=== PATIENT | female | born 1995 | race African-American/Black ===

== ENCOUNTER 2018-07-27 10:36 | Emergency (ER) | payer OTHER, MEDICAID, SELFPAY ==
[2018-07-27] VITALS (8 sets, daily range): BP systolic 112–125; BP diastolic 63–75; PULSE 100–117; RESP 13–18; TEMP 36.8–39.2; O2SAT 98–100
[2018-07-27 11:33] LABS: Bacteria Urine Many (>30); Culture Indicated Urine Specimen Cultured; RBC Urine 0-1/HPF (0-5/HPF); Squamous Epithelial Cell Urine 1-5 /HPF; WBC Urine >100/HPF (0-5/HPF)
[2018-07-27] MEDS: KETOROLAC 60 MG/2 ML VIAL 30 MG IV (11:53)
[2018-07-27] MEDS: SODIUM CHLORIDE 0.9% 1,000 ML 1000 ML IV (11:54)
[2018-07-27 12:00] LABS: Add Manual Diff / Slide Review NO; Basophils Percent Auto 0.3 % (0-2); Eosinophils Percent Auto 0.3 % (2-4); Hematocrit 33.4 % (36-46); Mean Corpuscular Hemoglobin 29.1 PG (26-34); Mean Corpuscular Volume 88.3 fL (80-100); Neutrophils Absolute Auto 11300 /uL (3000-5900); Neutrophils Percent Auto 76.4 % (50-75); Platelet Count 362 X10^3/uL (150-400); Red Blood Cell Count 3.78 X10^6/uL (4.0-5.2); Red Cell Distribution Width 14.1 % (11.6-14.8); White Blood Cell Count 14.8 X10^3/uL (4.5-11.0)
[2018-07-27 12:07] LABS: INR 1.5 (0.9-1.3); Prothrombin Time 16.1 SECONDS (10.1-12.7)
[2018-07-27 12:10] LABS: Lactate (Lactic Acid) 1.7 mmol/L (0.7-2.1); PTT Partial Thromboplastin Tim 32 SECONDS (26.4-36.2)
--- NOTE | 2018-07-27 12:10 | ED.FEMALEGU ---
HPI - Female Genitourinary <JOSR Stone - Last Filed: 07/27/18 21:52> General Chief complaint: Urogenital-Female Stated complaint: Back pain Time Seen by Provider: 07/27/18 12:10 Source: patient Mode of arrival: ambulatory Limitations: no limitations History of Present Illness HPI Narrative: 23-year-old healthy female that is a nonsmoker here for complaint of having right flank pain and right lower abdominal pain for the last 4 days. She states she has increased urinary frequency and no dysuria. Positive fever. No nausea or vomiting. She states she is tolerating food and fluids well. She denies any vaginal discharge or bleeding. She denies any trauma to the area. She denies any stressors or relievers of the discomfort. No other concerns or complaints Related Data Previous Rx's Medication Instructions Recorded ciprofloxacin HCl 500 mg PO BID #14 tab 07/27/18 Allergies Allergy/AdvReac Type Severity Reaction Status Date / Time No Known Drug Allergies Allergy Verified 07/27/18 12:29 Review of Systems <JOSR Stone - Last Filed: 07/27/18 21:52> Constitutional Denies chills, Reports fever(s), Denies lethargy and Denies weakness Eyes Denies change in vision, Denies eye discharge, Denies irritation and Denies loss of vision ENT Ears, Nose, Mouth, and Throat: Denies change in voice, Denies neck pain and Denies sore throat Cardiovascular Denies chest pain, Denies irregular heart rhythm, Denies lightheadedness, Denies palpitations, Denies dyspnea, Denies dyspnea on exertion and Denies orthopnea Respiratory Denies cough, Denies dyspnea, Denies dyspnea on exertion and Denies wheezing Gastrointestinal Gastrointestinal: Reports abdominal pain Genitourinary Reports flank pain and Reports urinary urgency Musculoskeletal Denies neck pain Integumentary/Breasts Denies pruritus, Denies erythema, Denies rash and Denies wounds Neurologic Denies confusion, Denies loss of vision and Denies weakness Psychiatric Denies anxiety, Denies confusion, Denies depression, Denies homicidal ideation and Denies suicidal ideation Endocrine Denies palpitations Hematologic/Lymphatic Denies easy bruising Allergic/Immunologic Denies wheezing Exam <JOSR Stone - Last Filed: 07/27/18 21:52> Initial Vital Signs Initial Vital Signs: Vital Signs Temperature 102.6 F H 07/27/18 10:40 Pulse Rate 117 H 07/27/18 10:40 Respiratory Rate 13 07/27/18 10:40 Blood Pressure 125/75 07/27/18 10:40 Pulse Oximetry 100 07/27/18 10:40 Const General: cooperative and well developed Nutritional Appearance: well nourished Orientation: alert, awake, oriented x3 and not confused [facility] Mouth: oral mucosae normal and oropharynx normal Eyes General: appearance normal, both eyes and all related structures Eyelids: eyelids normal Conjunctivae: conjunctivae normal Sclera: sclerae normal Pupils: PERRL EOM: EOM intact bilaterally Resp Effort & Inspection: normal respiratory effort, able to speak in complete sentences, no respiratory distress and no use of accessory muscles Auscultation: clear to auscultation bilaterally, no rales, no rhonchi and no wheezes Cardio Rate: regular rate Rhythm: regular rhythm Heart Sounds: no click, no gallops, no murmurs and no rubs Pulses: normal peripheral pulses GI Inspection: non-distended Palpation: soft, no hepatosplenomegaly, No guarding, No pulsatile mass and tender ( right lower quadrant tenderness) Auscultation: normal bowel sounds General: No CVA tenderness Neuro General: alert, oriented x3, gait normal and no focal motor deficits Speech: speech normal Extrem General: full ROM, no clubbing, cyanosis or edema, no pedal edema and no calf tenderness <Maxine Church MD - Last Filed: 07/28/18 08:02> Initial Vital Signs Initial Vital Signs: Vital Signs Temperature 102.6 F H 07/27/18 10:40 Pulse Rate 117 H 07/27/18 10:40 Respiratory Rate 13 07/27/18 10:40 Blood Pressure 125/75 07/27/18 10:40 Pulse Oximetry 100 07/27/18 10:40 Course <JOSR Stone - Last Filed: 07/27/18 21:52> Orders Ordered: Discontinued Medications Acetaminophen (Tylenol) 975 mg PO NOW ONE Stop: 07/27/18 12:37 Last Admin: 07/27/18 12:38 Dose: 975 mg Sodium Chloride (Normal Saline 0.9%) 1,000 mls @ 1,000 mls/hr IV BOLUS ONE Stop: 07/27/18 12:38 Last Infusion: 07/27/18 13:51 Dose: 0 mls/hr Admin: 07/27/18 11:54 Dose: 1,000 mls/hr Ceftriaxone Sodium/Dextrose (Rocephin) 1 gm in 50 mls @ 100 mls/hr IV NOW ONE Stop: 07/27/18 12:48 Last Infusion: 07/27/18 13:51 Dose: 0 mls/hr Admin: 07/27/18 12:38 Dose: 100 mls/hr Ketorolac Tromethamine (Toradol) 30 mg IV NOW ONE Stop: 07/27/18 11:40 Last Admin: 07/27/18 11:53 Dose: 30 mg Vital Signs - 8 hr 07/27/18 14:12 07/27/18 14:26 07/27/18 14:29 Temperature 98.3 F 98.3 F Pulse Rate 103 H Respiratory Rate 16 Blood Pressure [Right Arm] 112/63 Pulse Oximetry 99 <Maxine Church MD - Last Filed: 07/28/18 08:02> Orders Ordered: Discontinued Medications Acetaminophen (Tylenol) 975 mg PO NOW ONE Stop: 07/27/18 12:37 Last Admin: 07/27/18 12:38 Dose: 975 mg Sodium Chloride (Normal Saline 0.9%) 1,000 mls @ 1,000 mls/hr IV BOLUS ONE Stop: 07/27/18 12:38 Last Infusion: 07/27/18 13:51 Dose: 0 mls/hr Admin: 07/27/18 11:54 Dose: 1,000 mls/hr Ceftriaxone Sodium/Dextrose (Rocephin) 1 gm in 50 mls @ 100 mls/hr IV NOW ONE Stop: 07/27/18 12:48 Last Infusion: 07/27/18 13:51 Dose: 0 mls/hr Admin: 07/27/18 12:38 Dose: 100 mls/hr Ketorolac Tromethamine (Toradol) 30 mg IV NOW ONE Stop: 07/27/18 11:40 Last Admin: 07/27/18 11:53 Dose: 30 mg Vital Signs - 8 hr 07/27/18 14:12 07/27/18 14:26 07/27/18 14:29 Temperature 98.3 F 98.3 F Pulse Rate 103 H Respiratory Rate 16 Blood Pressure [Right Arm] 112/63 Pulse Oximetry 99 MDM - Female Genitourinary <JOSR Stone - Last Filed: 07/27/18 21:52> Lab Data Result diagrams: 07/27/18 11:50 07/27/18 11:50 Lab Results 07/27/18 07/27/18 07/27/18 Range/Units 11:10 11:50 11:50 WBC 14.8 H (4.5-11.0) X10^3/uL RBC 3.78 L (4.0-5.2) X10^6/uL Hgb 11.0 L (12.0-16.0) g/dL Hct 33.4 L (36-46) % MCV 88.3 (80-100) fL MCH 29.1 (26-34) PG MCHC 33.0 (30-36) % RDW 14.1 (11.6-14.8) % Plt Count 362 (150-400) X10^3/uL Neut % (Auto) 76.4 H (50-75) % Lymph % (Auto) 7.0 L (25-40) % [place] % (Auto) 16.0 H (3-14) % Eos % (Auto) 0.3 L (2-4) % Baso % (Auto) 0.3 (0-2) % Neut # (Auto) 22104 H (1009-9974) /uL PT 16.1 H (10.1-12.7) SECONDS INR 1.5 H (0.9-1.3) APTT 32 (26.4-36.2) SECONDS Sodium (137-145) mmol/L Potassium (3.4-5.1) mmol/L Chloride (98-107) mmol/L Carbon Dioxide (22-32) mmol/L BUN (7-17) mg/dL Creatinine (0.52-1.04) mg/dL Estimated GFR (>60) mL/min BUN/Creatinine Ratio (6-22) Glucose (70-100) mg/dL Lactate (0.7-2.1) mmol/L Calcium (8.4-10.2) mg/dL Total Bilirubin (0.2-1.3) mg/dL AST (14-36) IU/L ALT (9-52) IU/L Alkaline Phosphatase (38-126) U/L Total Protein (6.3-8.2) g/dL Albumin (3.5-5.0) g/dL Globulin (1.7-4.1) g/dL Albumin/Globulin Ratio (1.0-2.8) Lipase (23-300) U/L Procalcitonin (<0.5) ng/mL Urine RBC 0-1/hpf (0-5/HPF) Urine WBC >100/hpf H (0-5/HPF) Ur Squamous Epith Cells 1-5 /hpf Urine Bacteria Many (>30) H (None) Ur Culture Indicated? Specimen cultured Micro UA Comment Not Reportable 07/27/18 07/27/18 07/27/18 Range/Units 11:50 11:50 11:50 WBC (4.5-11.0) X10^3/uL RBC (4.0-5.2) X10^6/uL Hgb (12.0-16.0) g/dL Hct (36-46) % MCV (80-100) fL MCH (26-34) PG MCHC (30-36) % RDW (11.6-14.8) % Plt Count (150-400) X10^3/uL Neut % (Auto) (50-75) % Lymph % (Auto) (25-40) % [place] % (Auto) (3-14) % Eos % (Auto) (2-4) % Baso % (Auto) (0-2) % Neut # (Auto) (5543-7611) /uL PT (10.1-12.7) SECONDS INR (0.9-1.3) APTT (26.4-36.2) SECONDS Sodium 140 (137-145) mmol/L Potassium 3.4 (3.4-5.1) mmol/L Chloride 97 L (98-107) mmol/L Carbon Dioxide 30 (22-32) mmol/L BUN 7 (7-17) mg/dL Creatinine 0.60 (0.52-1.04) mg/dL Estimated GFR > 60.0 (>60) mL/min BUN/Creatinine Ratio 11.7 (6-22) Glucose 105 H (70-100) mg/dL Lactate 1.7 (0.7-2.1) mmol/L Calcium 8.7 (8.4-10.2) mg/dL Total Bilirubin 0.4 (0.2-1.3) mg/dL AST 28 (14-36) IU/L ALT 23 (9-52) IU/L Alkaline Phosphatase 86 (38-126) U/L Total Protein 7.1 (6.3-8.2) g/dL Albumin 3.7 (3.5-5.0) g/dL Globulin 3.4 (1.7-4.1) g/dL Albumin/Globulin Ratio 1.1 (1.0-2.8) Lipase 14 L (23-300) U/L Procalcitonin 0.22 (<0.5) ng/mL Urine RBC (0-5/HPF) Urine WBC (0-5/HPF) Ur Squamous Epith Cells Urine Bacteria (None) Ur Culture Indicated? Micro UA Comment Point of Care Testing Test Results Negative Urine Dip Bedside Urine Glucose Negative Bedside Urine Bilirubin - Negative Bedside Urine Ketone - Negative Urine Specific [place] 1.015 Bedside Urine Occult Blood +/- Bedside Urine pH 6.0 Bedside Urine Protein + 30 Bedside Urine Urobilinogen - Negative Bedside Urine Nitrite + Positive Bedside Urine Leukocytes +++ [address] scan - abdomen: Radiologist's impression: CT Scan Report Signed Patient: Rowena Gracia [facility]#: [id number] : 1995Acct:[id number] Age/Sex: 23 / FDate of Service: 07/27/18 Loc: ED Accession Number: [id number] Procedure: CT abdomen pelvis w con Ordering Provider: Elvin Moses PROCEDURE: CT ABDOMEN PELVIS W CON INDICATIONS: Right flank pain right lower quadrant pain TECHNIQUE: After the administration of intravenous contrast, 5 mm thick sections acquired from the diaphragm to the symphysis. 5 mm coronal and sagittal reformats were acquired. For radiation dose reduction, the following was used: automated exposure control, adjustment of mA and/or kV according to patient size. COMPARISON: None. FINDINGS: Image quality: Excellent. ABDOMEN: Lung bases: Lung bases are clear. Heart size is normal. Solid organs: Liver is normal in size and enhancement. Gallbladder is unremarkable. Biliary system is non dilated. Pancreas enhances normally. Spleen is normal in size and enhancement. No adrenal nodules. The left kidney demonstrates normal size and enhancement. The right kidney is normal size and demonstrates multiple striated nephrograms. There is moderate right perinephric fat stranding. No hydronephrosis. The right ureter is mildly dilated and hyperemic throughout its course. No ureteral calculi. Peritoneum and bowel: Bowel loops demonstrate normal wall thickness and caliber. The appendix is thin walled and gas filled. No free fluid or air. Nodes and vessels: No retroperitoneal or mesenteric adenopathy by size criteria. Aorta and inferior vena cava are normal in size. Miscellaneous: No ventral hernias. PELVIS: Genitourinary: Bladder wall thickness is normal. The uterus is grossly normal. Miscellaneous: No inguinal hernias or adenopathy. Bones: No suspicious bony lesions. No vertebral body compression fractures. IMPRESSION: 1. Findings suggestive of acute right pyelonephritis. Please correlate with urinalysis. 2. No hydronephrosis, hydroureter, or ureterolithiasis. 3. Normal appendix. These findings were discussed with JOSR Stone at 1:12 PM on 07/27/18. Dictated by: Allyson Armenta M.D. on 07/27/2018 at 13:06 Approved by: Allyson Armenta M.D. on 07/27/2018 at 13:13 [facility] Narrative Medical decision making narrative: CBC shows elevated white count. Chem panel was obtained was unremarkable. Lipase was unremarkable. CT scan of the abdomen was obtained and shows findings consistent with right pyelonephritis. Urinalysis indicates urinary tract infection. She was given Rocephin in the emergency room. Patient desires to go home at this timeframe as she states she is feeling better. [id number] Tylenol as needed for fever. She is prescribed Cipro. Follow up in the next 48 hr for re-evaluation. For any worsening symptoms return to the emergency room. <Maxnie Church MD - Last Filed: 07/28/18 08:02> Lab Data Lab Results 07/27/18 07/27/18 07/27/18 Range/Units 11:10 11:50 11:50 WBC 14.8 H (4.5-11.0) X10^3/uL RBC 3.78 L (4.0-5.2) X10^6/uL Hgb 11.0 L (12.0-16.0) g/dL Hct 33.4 L (36-46) % MCV 88.3 (80-100) fL MCH 29.1 (26-34) PG MCHC 33.0 (30-36) % RDW 14.1 (11.6-14.8) % Plt Count 362 (150-400) X10^3/uL Neut % (Auto) 76.4 H (50-75) % Lymph % (Auto) 7.0 L (25-40) % [place] % (Auto) 16.0 H (3-14) % Eos % (Auto) 0.3 L (2-4) % Baso % (Auto) 0.3 (0-2) % Neut # (Auto) 33221 H (1157-6991) /uL PT 16.1 H (10.1-12.7) SECONDS INR 1.5 H (0.9-1.3) APTT 32 (26.4-36.2) SECONDS Sodium (137-145) mmol/L Potassium (3.4-5.1) mmol/L Chloride (98-107) mmol/L Carbon Dioxide (22-32) mmol/L BUN (7-17) mg/dL Creatinine (0.52-1.04) mg/dL Estimated GFR (>60) mL/min BUN/Creatinine Ratio (6-22) Glucose (70-100) mg/dL Lactate (0.7-2.1) mmol/L Calcium (8.4-10.2) mg/dL Total Bilirubin (0.2-1.3) mg/dL AST (14-36) IU/L ALT (9-52) IU/L Alkaline Phosphatase (38-126) U/L Total Protein (6.3-8.2) g/dL Albumin (3.5-5.0) g/dL Globulin (1.7-4.1) g/dL Albumin/Globulin Ratio (1.0-2.8) Lipase (23-300) U/L Procalcitonin (<0.5) ng/mL Urine RBC 0-1/hpf (0-5/HPF) Urine WBC >100/hpf H (0-5/HPF) Ur Squamous Epith Cells 1-5 /hpf Urine Bacteria Many (>30) H (None) Ur Culture Indicated? Specimen cultured Micro UA Comment Not Reportable 07/27/18 07/27/18 07/27/18 Range/Units 11:50 11:50 11:50 WBC (4.5-11.0) X10^3/uL RBC (4.0-5.2) X10^6/uL Hgb (12.0-16.0) g/dL Hct (36-46) % MCV (80-100) fL MCH (26-34) PG MCHC (30-36) % RDW (11.6-14.8) % Plt Count (150-400) X10^3/uL Neut % (Auto) (50-75) % Lymph % (Auto) (25-40) % [place] % (Auto) (3-14) % Eos % (Auto) (2-4) % Baso % (Auto) (0-2) % Neut # (Auto) (3194-4550) /uL PT (10.1-12.7) SECONDS INR (0.9-1.3) APTT (26.4-36.2) SECONDS Sodium 140 (137-145) mmol/L Potassium 3.4 (3.4-5.1) mmol/L Chloride 97 L (98-107) mmol/L Carbon Dioxide 30 (22-32) mmol/L BUN 7 (7-17) mg/dL Creatinine 0.60 (0.52-1.04) mg/dL Estimated GFR > 60.0 (>60) mL/min BUN/Creatinine Ratio 11.7 (6-22) Glucose 105 H (70-100) mg/dL Lactate 1.7 (0.7-2.1) mmol/L Calcium 8.7 (8.4-10.2) mg/dL Total Bilirubin 0.4 (0.2-1.3) mg/dL AST 28 (14-36) IU/L ALT 23 (9-52) IU/L Alkaline Phosphatase 86 (38-126) U/L Total Protein 7.1 (6.3-8.2) g/dL Albumin 3.7 (3.5-5.0) g/dL Globulin 3.4 (1.7-4.1) g/dL Albumin/Globulin Ratio 1.1 (1.0-2.8) Lipase 14 L (23-300) U/L Procalcitonin 0.22 (<0.5) ng/mL Urine RBC (0-5/HPF) Urine WBC (0-5/HPF) Ur Squamous Epith Cells Urine Bacteria (None) Ur Culture Indicated? Micro UA Comment Point of Care Testing Test Results Negative Urine Dip Bedside Urine Glucose Negative Bedside Urine Bilirubin - Negative Bedside Urine Ketone - Negative Urine Specific [place] 1.015 Bedside Urine Occult Blood +/- Bedside Urine pH 6.0 Bedside Urine Protein + 30 Bedside Urine Urobilinogen - Negative Bedside Urine Nitrite + Positive Bedside Urine Leukocytes +++ 500 Esterase Discharge Plan Departure Patient Disposition: Home Clinical Impression: Pyelonephritis Discharge Date/Time: 07/27/18 14:30 Interventions: ED Discharge Assessment Last Done: 07/27/18 14:29 Instructions: DI for Kidney Infection Activity Restrictions/Additional Instructions: laboratory results and imaging shows findings consistent with a kidney infection. You are placed on oral antibiotic called ciprofloxacin take as directed. follow-up with primary care in the next couple days for re-evaluation. Plenty of fluids. Use [id number] Tylenol as needed for discomfort and fever. For any worsening symptoms return to the emergency room. Prescriptions: New ciprofloxacin HCl 500 mg tablet 500 mg PO BID Qty: 14 RF: 0 Referrals: [facility] [Provider Group]
[2018-07-27 12:18] LABS: Alanine Aminotransferase 23 IU/L (9-52); Albumin 3.7 g/dL (3.5-5.0); Albumin Globulin Ratio 1.1 (1.0-2.8); Alkaline Phosphatase 86 U/L (38-126); Aspartate Aminotransferase 28 IU/L (14-36); BUN Creatinine Ratio 11.7 (6-22); Bilirubin Total 0.4 mg/dL (0.2-1.3); Blood Urea Nitrogen 7 mg/dL (7-17); Calcium 8.7 mg/dL (8.4-10.2); Carbon Dioxide 30 mmol/L (22-32); Chloride 97 mmol/L (98-107); Estimated Glomerular Filt Rate > 60.0 mL/min (>60); Globulin 3.4 g/dL (1.7-4.1); Glucose 105 mg/dL (70-100); HEMOLYSIS 39 (0-50); Lipase 14 U/L (23-300); Potassium 3.4 mmol/L (3.4-5.1); Sodium 140 mmol/L (137-145); Total Protein 7.1 g/dL (6.3-8.2)
--- NOTE | 2018-07-27 12:23 | ED_ITS ---
HPI - Female Genitourinary <JOSR Stone - Last Filed: 07/27/18 21:52> General Chief complaint: Urogenital-Female Stated complaint: Back pain Time Seen by Provider: 07/27/18 12:10 Source: patient Mode of arrival: ambulatory Limitations: no limitations History of Present Illness HPI Narrative: 23-year-old healthy female that is a nonsmoker here for complaint of having right flank pain and right lower abdominal pain for the last 4 days. She states she has increased urinary frequency and no dysuria. Positive fever. No nausea or vomiting. She states she is tolerating food and fluids well. She denies any vaginal discharge or bleeding. She denies any trauma to the area. She denies any stressors or relievers of the discomfort. No other concerns or complaints Related Data Previous Rx's Medication Instructions Recorded ciprofloxacin HCl 500 mg PO BID #14 tab 07/27/18 Allergies Allergy/AdvReac Type Severity Reaction Status Date / Time No Known Drug Allergies Allergy Verified 07/27/18 12:29 Review of Systems <JOSR Stone - Last Filed: 07/27/18 21:52> Constitutional Denies chills, Reports fever(s), Denies lethargy and Denies weakness Eyes Denies change in vision, Denies eye discharge, Denies irritation and Denies loss of vision ENT Ears, Nose, Mouth, and Throat: Denies change in voice, Denies neck pain and Denies sore throat Cardiovascular Denies chest pain, Denies irregular heart rhythm, Denies lightheadedness, Denies palpitations, Denies dyspnea, Denies dyspnea on exertion and Denies orthopnea Respiratory Denies cough, Denies dyspnea, Denies dyspnea on exertion and Denies wheezing Gastrointestinal Gastrointestinal: Reports abdominal pain Genitourinary Reports flank pain and Reports urinary urgency Musculoskeletal Denies neck pain Integumentary/Breasts Denies pruritus, Denies erythema, Denies rash and Denies wounds Neurologic Denies confusion, Denies loss of vision and Denies weakness Psychiatric Denies anxiety, Denies confusion, Denies depression, Denies homicidal ideation and Denies suicidal ideation Endocrine Denies palpitations Hematologic/Lymphatic Denies easy bruising Allergic/Immunologic Denies wheezing Exam <JOSR Stone - Last Filed: 07/27/18 21:52> Initial Vital Signs Initial Vital Signs: Vital Signs Temperature 102.6 F H 07/27/18 10:40 Pulse Rate 117 H 07/27/18 10:40 Respiratory Rate 13 07/27/18 10:40 Blood Pressure 125/75 07/27/18 10:40 Pulse Oximetry 100 07/27/18 10:40 Const General: cooperative and well developed Nutritional Appearance: well nourished Orientation: alert, awake, oriented x3 and not confused [facility] Mouth: oral mucosae normal and oropharynx normal Eyes General: appearance normal, both eyes and all related structures Eyelids: eyelids normal Conjunctivae: conjunctivae normal Sclera: sclerae normal Pupils: PERRL EOM: EOM intact bilaterally Resp Effort & Inspection: normal respiratory effort, able to speak in complete sentences, no respiratory distress and no use of accessory muscles Auscultation: clear to auscultation bilaterally, no rales, no rhonchi and no wheezes Cardio Rate: regular rate Rhythm: regular rhythm Heart Sounds: no click, no gallops, no murmurs and no rubs Pulses: normal peripheral pulses GI Inspection: non-distended Palpation: soft, no hepatosplenomegaly, No guarding, No pulsatile mass and tender ( right lower quadrant tenderness) Auscultation: normal bowel sounds General: No CVA tenderness Neuro General: alert, oriented x3, gait normal and no focal motor deficits Speech: speech normal Extrem General: full ROM, no clubbing, cyanosis or edema, no pedal edema and no calf tenderness <Maxine Church MD - Last Filed: 07/28/18 08:02> Initial Vital Signs Initial Vital Signs: Vital Signs Temperature 102.6 F H 07/27/18 10:40 Pulse Rate 117 H 07/27/18 10:40 Respiratory Rate 13 07/27/18 10:40 Blood Pressure 125/75 07/27/18 10:40 Pulse Oximetry 100 07/27/18 10:40 Course <JOSR Stone - Last Filed: 07/27/18 21:52> Orders Ordered: Discontinued Medications Acetaminophen (Tylenol) 975 mg PO NOW ONE Stop: 07/27/18 12:37 Last Admin: 07/27/18 12:38 Dose: 975 mg Sodium Chloride (Normal Saline 0.9%) 1,000 mls @ 1,000 mls/hr IV BOLUS ONE Stop: 07/27/18 12:38 Last Infusion: 07/27/18 13:51 Dose: 0 mls/hr Admin: 07/27/18 11:54 Dose: 1,000 mls/hr Ceftriaxone Sodium/Dextrose (Rocephin) 1 gm in 50 mls @ 100 mls/hr IV NOW ONE Stop: 07/27/18 12:48 Last Infusion: 07/27/18 13:51 Dose: 0 mls/hr Admin: 07/27/18 12:38 Dose: 100 mls/hr Ketorolac Tromethamine (Toradol) 30 mg IV NOW ONE Stop: 07/27/18 11:40 Last Admin: 07/27/18 11:53 Dose: 30 mg Vital Signs - 8 hr 07/27/18 14:12 07/27/18 14:26 07/27/18 14:29 Temperature 98.3 F 98.3 F Pulse Rate 103 H Respiratory Rate 16 Blood Pressure [Right Arm] 112/63 Pulse Oximetry 99 <Maxine Church MD - Last Filed: 07/28/18 08:02> Orders Ordered: Discontinued Medications Acetaminophen (Tylenol) 975 mg PO NOW ONE Stop: 07/27/18 12:37 Last Admin: 07/27/18 12:38 Dose: 975 mg Sodium Chloride (Normal Saline 0.9%) 1,000 mls @ 1,000 mls/hr IV BOLUS ONE Stop: 07/27/18 12:38 Last Infusion: 07/27/18 13:51 Dose: 0 mls/hr Admin: 07/27/18 11:54 Dose: 1,000 mls/hr Ceftriaxone Sodium/Dextrose (Rocephin) 1 gm in 50 mls @ 100 mls/hr IV NOW ONE Stop: 07/27/18 12:48 Last Infusion: 07/27/18 13:51 Dose: 0 mls/hr Admin: 07/27/18 12:38 Dose: 100 mls/hr Ketorolac Tromethamine (Toradol) 30 mg IV NOW ONE Stop: 07/27/18 11:40 Last Admin: 07/27/18 11:53 Dose: 30 mg Vital Signs - 8 hr 07/27/18 14:12 07/27/18 14:26 07/27/18 14:29 Temperature 98.3 F 98.3 F Pulse Rate 103 H Respiratory Rate 16 Blood Pressure [Right Arm] 112/63 Pulse Oximetry 99 MDM - Female Genitourinary <JOSR Stone - Last Filed: 07/27/18 21:52> Lab Data Result diagrams: 07/27/18 11:50 07/27/18 11:50 Lab Results 07/27/18 07/27/18 07/27/18 Range/Units 11:10 11:50 11:50 WBC 14.8 H (4.5-11.0) X10^3/uL RBC 3.78 L (4.0-5.2) X10^6/uL Hgb 11.0 L (12.0-16.0) g/dL Hct 33.4 L (36-46) % MCV 88.3 (80-100) fL MCH 29.1 (26-34) PG MCHC 33.0 (30-36) % RDW 14.1 (11.6-14.8) % Plt Count 362 (150-400) X10^3/uL Neut % (Auto) 76.4 H (50-75) % Lymph % (Auto) 7.0 L (25-40) % [place] % (Auto) 16.0 H (3-14) % Eos % (Auto) 0.3 L (2-4) % Baso % (Auto) 0.3 (0-2) % Neut # (Auto) 67534 H (2757-3551) /uL PT 16.1 H (10.1-12.7) SECONDS INR 1.5 H (0.9-1.3) APTT 32 (26.4-36.2) SECONDS Sodium (137-145) mmol/L Potassium (3.4-5.1) mmol/L Chloride (98-107) mmol/L Carbon Dioxide (22-32) mmol/L BUN (7-17) mg/dL Creatinine (0.52-1.04) mg/dL Estimated GFR (>60) mL/min BUN/Creatinine Ratio (6-22) Glucose (70-100) mg/dL Lactate (0.7-2.1) mmol/L Calcium (8.4-10.2) mg/dL Total Bilirubin (0.2-1.3) mg/dL AST (14-36) IU/L ALT (9-52) IU/L Alkaline Phosphatase (38-126) U/L Total Protein (6.3-8.2) g/dL Albumin (3.5-5.0) g/dL Globulin (1.7-4.1) g/dL Albumin/Globulin Ratio (1.0-2.8) Lipase (23-300) U/L Procalcitonin (<0.5) ng/mL Urine RBC 0-1/hpf (0-5/HPF) Urine WBC >100/hpf H (0-5/HPF) Ur Squamous Epith Cells 1-5 /hpf Urine Bacteria Many (>30) H (None) Ur Culture Indicated? Specimen cultured Micro UA Comment Not Reportable 07/27/18 07/27/18 07/27/18 Range/Units 11:50 11:50 11:50 WBC (4.5-11.0) X10^3/uL RBC (4.0-5.2) X10^6/uL Hgb (12.0-16.0) g/dL Hct (36-46) % MCV (80-100) fL MCH (26-34) PG MCHC (30-36) % RDW (11.6-14.8) % Plt Count (150-400) X10^3/uL Neut % (Auto) (50-75) % Lymph % (Auto) (25-40) % [place] % (Auto) (3-14) % Eos % (Auto) (2-4) % Baso % (Auto) (0-2) % Neut # (Auto) (3177-9337) /uL PT (10.1-12.7) SECONDS INR (0.9-1.3) APTT (26.4-36.2) SECONDS Sodium 140 (137-145) mmol/L Potassium 3.4 (3.4-5.1) mmol/L Chloride 97 L (98-107) mmol/L Carbon Dioxide 30 (22-32) mmol/L BUN 7 (7-17) mg/dL Creatinine 0.60 (0.52-1.04) mg/dL Estimated GFR > 60.0 (>60) mL/min BUN/Creatinine Ratio 11.7 (6-22) Glucose 105 H (70-100) mg/dL Lactate 1.7 (0.7-2.1) mmol/L Calcium 8.7 (8.4-10.2) mg/dL Total Bilirubin 0.4 (0.2-1.3) mg/dL AST 28 (14-36) IU/L ALT 23 (9-52) IU/L Alkaline Phosphatase 86 (38-126) U/L Total Protein 7.1 (6.3-8.2) g/dL Albumin 3.7 (3.5-5.0) g/dL Globulin 3.4 (1.7-4.1) g/dL Albumin/Globulin Ratio 1.1 (1.0-2.8) Lipase 14 L (23-300) U/L Procalcitonin 0.22 (<0.5) ng/mL Urine RBC (0-5/HPF) Urine WBC (0-5/HPF) Ur Squamous Epith Cells Urine Bacteria (None) Ur Culture Indicated? Micro UA Comment Point of Care Testing Test Results Negative Urine Dip Bedside Urine Glucose Negative Bedside Urine Bilirubin - Negative Bedside Urine Ketone - Negative Urine Specific [place] 1.015 Bedside Urine Occult Blood +/- Bedside Urine pH 6.0 Bedside Urine Protein + 30 Bedside Urine Urobilinogen - Negative Bedside Urine Nitrite + Positive Bedside Urine Leukocytes +++ [address] scan - abdomen: Radiologist's impression: CT Scan Report Signed Patient: Rowena Garcia [facility]#: [id number] : 1995Acct:[id number] Age/Sex: 23 / FDate of Service: 07/27/18 Loc: ED Accession Number: [id number] Procedure: CT abdomen pelvis w con Ordering Provider: Elvin Moses PROCEDURE: CT ABDOMEN PELVIS W CON INDICATIONS: Right flank pain right lower quadrant pain TECHNIQUE: After the administration of intravenous contrast, 5 mm thick sections acquired from the diaphragm to the symphysis. 5 mm coronal and sagittal reformats were acquired. For radiation dose reduction, the following was used: automated exposure control, adjustment of mA and/or kV according to patient size. COMPARISON: None. FINDINGS: Image quality: Excellent. ABDOMEN: Lung bases: Lung bases are clear. Heart size is normal. Solid organs: Liver is normal in size and enhancement. Gallbladder is unremarkable. Biliary system is non dilated. Pancreas enhances normally. Spleen is normal in size and enhancement. No adrenal nodules. The left kidney demonstrates normal size and enhancement. The right kidney is normal size and demonstrates multiple striated nephrograms. There is moderate right perinephric fat stranding. No hydronephrosis. The right ureter is mildly dilated and hyperemic throughout its course. No ureteral calculi. Peritoneum and bowel: Bowel loops demonstrate normal wall thickness and caliber. The appendix is thin walled and gas filled. No free fluid or air. Nodes and vessels: No retroperitoneal or mesenteric adenopathy by size criteria. Aorta and inferior vena cava are normal in size. Miscellaneous: No ventral hernias. PELVIS: Genitourinary: Bladder wall thickness is normal. The uterus is grossly normal. Miscellaneous: No inguinal hernias or adenopathy. Bones: No suspicious bony lesions. No vertebral body compression fractures. IMPRESSION: 1. Findings suggestive of acute right pyelonephritis. Please correlate with urinalysis. 2. No hydronephrosis, hydroureter, or ureterolithiasis. 3. Normal appendix. These findings were discussed with JOSR Stone at 1:12 PM on 07/27/18. Dictated by: Allyson Armenta M.D. on 07/27/2018 at 13:06 Approved by: Allyson Armenta M.D. on 07/27/2018 at 13:13 [facility] Narrative Medical decision making narrative: CBC shows elevated white count. Chem panel was obtained was unremarkable. Lipase was unremarkable. CT scan of the abdomen was obtained and shows findings consistent with right pyelonephritis. Urinalysis indicates urinary tract infection. She was given Rocephin in the emergency room. Patient desires to go home at this timeframe as she states she is feeling better. [id number] Tylenol as needed for fever. She is prescribed Cipro. Follow up in the next 48 hr for re-evaluation. For any worsening symptoms return to the emergency room. <Maxine Church MD - Last Filed: 07/28/18 08:02> Lab Data Lab Results 07/27/18 07/27/18 07/27/18 Range/Units 11:10 11:50 11:50 WBC 14.8 H (4.5-11.0) X10^3/uL RBC 3.78 L (4.0-5.2) X10^6/uL Hgb 11.0 L (12.0-16.0) g/dL Hct 33.4 L (36-46) % MCV 88.3 (80-100) fL MCH 29.1 (26-34) PG MCHC 33.0 (30-36) % RDW 14.1 (11.6-14.8) % Plt Count 362 (150-400) X10^3/uL Neut % (Auto) 76.4 H (50-75) % Lymph % (Auto) 7.0 L (25-40) % [place] % (Auto) 16.0 H (3-14) % Eos % (Auto) 0.3 L (2-4) % Baso % (Auto) 0.3 (0-2) % Neut # (Auto) 67733 H (5667-7492) /uL PT 16.1 H (10.1-12.7) SECONDS INR 1.5 H (0.9-1.3) APTT 32 (26.4-36.2) SECONDS Sodium (137-145) mmol/L Potassium (3.4-5.1) mmol/L Chloride (98-107) mmol/L Carbon Dioxide (22-32) mmol/L BUN (7-17) mg/dL Creatinine (0.52-1.04) mg/dL Estimated GFR (>60) mL/min BUN/Creatinine Ratio (6-22) Glucose (70-100) mg/dL Lactate (0.7-2.1) mmol/L Calcium (8.4-10.2) mg/dL Total Bilirubin (0.2-1.3) mg/dL AST (14-36) IU/L ALT (9-52) IU/L Alkaline Phosphatase (38-126) U/L Total Protein (6.3-8.2) g/dL Albumin (3.5-5.0) g/dL Globulin (1.7-4.1) g/dL Albumin/Globulin Ratio (1.0-2.8) Lipase (23-300) U/L Procalcitonin (<0.5) ng/mL Urine RBC 0-1/hpf (0-5/HPF) Urine WBC >100/hpf H (0-5/HPF) Ur Squamous Epith Cells 1-5 /hpf Urine Bacteria Many (>30) H (None) Ur Culture Indicated? Specimen cultured Micro UA Comment Not Reportable 07/27/18 07/27/18 07/27/18 Range/Units 11:50 11:50 11:50 WBC (4.5-11.0) X10^3/uL RBC (4.0-5.2) X10^6/uL Hgb (12.0-16.0) g/dL Hct (36-46) % MCV (80-100) fL MCH (26-34) PG MCHC (30-36) % RDW (11.6-14.8) % Plt Count (150-400) X10^3/uL Neut % (Auto) (50-75) % Lymph % (Auto) (25-40) % [place] % (Auto) (3-14) % Eos % (Auto) (2-4) % Baso % (Auto) (0-2) % Neut # (Auto) (8375-5806) /uL PT (10.1-12.7) SECONDS INR (0.9-1.3) APTT (26.4-36.2) SECONDS Sodium 140 (137-145) mmol/L Potassium 3.4 (3.4-5.1) mmol/L Chloride 97 L (98-107) mmol/L Carbon Dioxide 30 (22-32) mmol/L BUN 7 (7-17) mg/dL Creatinine 0.60 (0.52-1.04) mg/dL Estimated GFR > 60.0 (>60) mL/min BUN/Creatinine Ratio 11.7 (6-22) Glucose 105 H (70-100) mg/dL Lactate 1.7 (0.7-2.1) mmol/L Calcium 8.7 (8.4-10.2) mg/dL Total Bilirubin 0.4 (0.2-1.3) mg/dL AST 28 (14-36) IU/L ALT 23 (9-52) IU/L Alkaline Phosphatase 86 (38-126) U/L Total Protein 7.1 (6.3-8.2) g/dL Albumin 3.7 (3.5-5.0) g/dL Globulin 3.4 (1.7-4.1) g/dL Albumin/Globulin Ratio 1.1 (1.0-2.8) Lipase 14 L (23-300) U/L Procalcitonin 0.22 (<0.5) ng/mL Urine RBC (0-5/HPF) Urine WBC (0-5/HPF) Ur Squamous Epith Cells Urine Bacteria (None) Ur Culture Indicated? Micro UA Comment Point of Care Testing Test Results Negative Urine Dip Bedside Urine Glucose Negative Bedside Urine Bilirubin - Negative Bedside Urine Ketone - Negative Urine Specific [place] 1.015 Bedside Urine Occult Blood +/- Bedside Urine pH 6.0 Bedside Urine Protein + 30 Bedside Urine Urobilinogen - Negative Bedside Urine Nitrite + Positive Bedside Urine Leukocytes +++ 500 Esterase Discharge Plan Departure Patient Disposition: Home Clinical Impression: Pyelonephritis Discharge Date/Time: 07/27/18 14:30 Interventions: ED Discharge Assessment Last Done: 07/27/18 14:29 Instructions: DI for Kidney Infection Activity Restrictions/Additional Instructions: laboratory results and imaging shows findings consistent with a kidney infection. You are placed on oral antibiotic called ciprofloxacin take as directed. follow-up with primary care in the next couple days for re- evaluation. Plenty of fluids. Use [id number] Tylenol as needed for discomfort and fever. For any worsening symptoms return to the emergency room. Prescriptions: New ciprofloxacin HCl 500 mg tablet 500 mg PO BID Qty: 14 RF: 0 Referrals: [facility] [Provider Group]
[2018-07-27] MEDS: CEFTRIAXONE 1 GM/50 ML FROZ.PIGGY IV (12:38)
[2018-07-27] MEDS: ACETAMINOPHEN 325 MG TABLET 975 MG PO (12:38)
--- NOTE | 2018-07-27 12:50 | DI.CT.S_ITS ---
PROCEDURE: CT ABDOMEN PELVIS W CON INDICATIONS: Right flank pain right lower quadrant pain TECHNIQUE: After the administration of intravenous contrast, 5 mm thick sections acquired from the diaphragm to the symphysis. 5 mm coronal and sagittal reformats were acquired. For radiation dose reduction, the following was used: automated exposure control, adjustment of mA and/or kV according to patient size. COMPARISON: None. FINDINGS: Image quality: Excellent. ABDOMEN: Lung bases: Lung bases are clear. Heart size is normal. Solid organs: Liver is normal in size and enhancement. Gallbladder is unremarkable. Biliary system is non dilated. Pancreas enhances normally. Spleen is normal in size and enhancement. No adrenal nodules. The left kidney demonstrates normal size and enhancement. The right kidney is normal size and demonstrates multiple striated nephrograms. There is moderate right perinephric fat stranding. No hydronephrosis. The right ureter is mildly dilated and hyperemic throughout its course. No ureteral calculi. Peritoneum and bowel: Bowel loops demonstrate normal wall thickness and caliber. The appendix is thin walled and gas filled. No free fluid or air. Nodes and vessels: No retroperitoneal or mesenteric adenopathy by size criteria. Aorta and inferior vena cava are normal in size. Miscellaneous: No ventral hernias. PELVIS: Genitourinary: Bladder wall thickness is normal. The uterus is grossly normal. Miscellaneous: No inguinal hernias or adenopathy. Bones: No suspicious bony lesions. No vertebral body compression fractures. IMPRESSION: 1. Findings suggestive of acute right pyelonephritis. Please correlate with urinalysis. 2. No hydronephrosis, hydroureter, or ureterolithiasis. 3. Normal appendix. These findings were discussed with JOSR Stone at 1:12 PM on 07/27/18. Dictated by: Allyson Armenta M.D. on 07/27/2018 at 13:06 Approved by: Allyson Armenta M.D. on 07/27/2018 at 13:13
[2018-07-27 12:55] LABS: Procalcitonin 0.22 ng/mL (<0.5)
== END 2018-07-27 14:30 | disposition home or self-care (01) ==
PROVIDERS: Emergency Medicine; Emergency Provider Nurse Practitioner Family
DX: N12 Tubulo-interstitial nephritis, not specified as acute or chronic (principal)
CPT/HCPCS: 36415; 36591; 74177; 80053; 81003; 81015; 81025; 83605; 83690; 84145; 85025; 85610; 85730; 87040; 87077; 87086; 87186; 96361; 96365; 96375; 99283; 99285; J1885; Q9967

== ENCOUNTER 2019-03-24 02:34 | Emergency (ER) | payer OTHER, MEDICAID, SELFPAY ==
[2019-03-24 02:41] VITALS: BP 138/83; PULSE 93; RESP 22; TEMP 37.5; O2SAT 97; BMI 25.8
--- NOTE | 2019-03-24 02:47 | ED.EXTPRO ---
HPI - Extremity Problem General Chief complaint: Extremity Problem,Nontraumatic Stated complaint: LEFT LEG PAIN/CANT MOVE Time Seen by Provider: 03/24/19 02:40 Source: patient Mode of arrival: wheelchair Limitations: no limitations History of Present Illness HPI Narrative: Patient is a 23-year-old female. Admitted to using methamphetamine prior to arrival. She here for evaluation of left hip pain. She stated that it started when she woke up yesterday afternoon. No specific trauma. No urinary symptoms. No abdominal pain. No change bowel. States that it hurts for her to walk. Never had anything like this before. No vaginal bleeding. Has not tried anything for the symptoms prior to arrival Related Data Previous Rx's Medication Instructions Recorded ciprofloxacin HCl 500 mg PO BID #14 tab 07/27/18 Allergies Allergy/AdvReac Type Severity Reaction Status Date / Time No Known Drug Allergies Allergy Verified 07/27/18 12:29 Review of Systems Constitutional Denies fever(s) Gastrointestinal Gastrointestinal: Denies abdominal pain, Denies change in stool character, Denies nausea and Denies vomiting Genitourinary Denies dysuria and Denies vaginal discharge Musculoskeletal Denies back pain, Reports myalgias (Left hip) and Reports arthralgias (Left hip) Integumentary/Breasts Denies rash Neurologic Comments: Tingling down her left leg Hematologic/Lymphatic Denies easy bleeding and Denies easy bruising [facility] Medical History Patient denies medical problems (Acute) Social History lives independently: Yes Social History lives independently: Yes Exam Initial Vital Signs Initial Vital Signs: Vital Signs Temperature 99.5 F 03/24/19 02:41 Pulse Rate 93 H 03/24/19 02:41 Respiratory Rate 22 03/24/19 02:41 Blood Pressure 138/83 03/24/19 02:41 Pulse Oximetry 97 03/24/19 02:41 Const General: cooperative, well groomed and No acute distress Orientation: alert and awake Cardio Pulses: dorsalis pedis present on the left GI Inspection: non-distended Palpation: soft, No firm and No tender Other: Did not perform a bimanual exam however is no adnexal pain on the left or right on external exam Skin Lesions: no lesions Rashes: no rashes Neuro General: alert and awake Other: Patient is fidgeting consistent with the use of meth. Extrem Other: Left knee unremarkable. Left ankle unremarkable. Patient with tenderness with flexion of the left hip. Patient also with tenderness of internal and external rotation left hip. No tenderness to palpation over the greater trochanter. No tenderness to palpation over the left adnexa. She points to the anterior thigh as the location of the pain. Course Orders Ordered: ED Orders 03/24/19 02:53 XR hip w pel if done LT 2V Stat Discontinued Medications Ketorolac Tromethamine (Toradol) 30 mg IM NOW ONE Stop: 03/24/19 03:19 Last Admin: 03/24/19 03:26 Dose: 30 mg Vital Signs - 8 hr 03/24/19 02:41 Temperature 99.5 F Pulse Rate 93 H Respiratory Rate 22 Blood Pressure 138/83 Pulse Oximetry 97 MDM - Extremity (Nontraumatic) Imaging Data X-ray hip: Attestation: I personally reviewed and interpreted this imaging study as follows: My impression: No fractures, no dislocations, no acute pathology MDM Narrative Medical decision making narrative: X-rays are negative for fractures. Patient is neurovascularly intact distal in the left lower extremity. Her symptoms seemed to be located to the left anterior thigh. Considered ovarian pathology however she has no adnexal tenderness. No urinary symptoms. No abdominal tenderness. Considered other etiologies such as femoral hernia/obturator hernia however patient is not tried anything for symptoms prior to arrival. She has no signs of cellulitis. She is afebrile. Considered septic joint however symptoms in the anterior thigh. She has no lower back pain. Informed her because of her methamphetamine use prior to arrival that I would not give her any opioids. She was given Toradol here in the ER. Hold on further workup for now. She is given return precautions. She expressed understanding agreement plan. Discharge Plan Departure Patient Disposition: Home Clinical Impression: Acute pain of left hip Instructions: DI for Hip Pain Activity Restrictions/Additional Instructions: There are no fractures on the x-ray. Because of this you can walk on your left leg. Recommend that you start taking an anti-inflammatory such as Motrin and/or Naprosyn. You can buy these medications [id number]. No driving for the next 24 hours or in the future if you prior taken intoxicating substances. Contact your primary care provider tomorrow for follow-up. If you do not have a primary doctor that contact 360 speak with the health case resource manager here at the hospital to help you establish care with a primary provider. Return to the emergency department for any new symptoms. Prescriptions: No Action ciprofloxacin HCl 500 mg tablet 500 mg PO BID Qty: 14 RF: 0
--- NOTE | 2019-03-24 02:53 | DI.RAD.S_ITS ---
PROCEDURE: XR HIP W PEL IF DONE LT 2V INDICATIONS: Left hip pain TECHNIQUE: AP pelvis with lateral view(s) of the left hip(s). COMPARISON: None. FINDINGS: Bones: No fractures or dislocations. Pelvic ring appears intact. No suspicious bony lesions. Soft tissues: The visualized bowel gas pattern is normal. No suspicious soft tissue calcifications. IMPRESSION: No evidence acute bony abnormality of the pelvis and left hip Dictated by: Vernon Santos M.D. on 03/24/2019 at 9:36 Approved by: Vernon Santos M.D. on 03/24/2019 at 9:36
[2019-03-24] MEDS: KETOROLAC 60 MG/2 ML VIAL 30 MG IM (03:26)
[2019-03-24 03:58] VITALS: BP 139/81; PULSE 88; RESP 18; O2SAT 100
== END 2019-03-24 03:59 | disposition home or self-care (01) ==
PROVIDERS: Emergency Provider Emergency Medicine
DX: M25.552 Pain in left hip (principal)
CPT/HCPCS: 73502; 96372; 99282; 99283; J1885

== ENCOUNTER 2019-11-04 17:12 | Emergency (ER) | payer OTHER, MEDICAID, SELFPAY ==
[2019-11-04 17:16] VITALS: BP 127/85; PULSE 104; RESP 18; TEMP 36.9; O2SAT 100; BMI 28.5
--- NOTE | 2019-11-04 18:11 | PC.NURSE ---
pt states that she believes that she is about 5 months , she has not had any care and presents today for confirmation of , how far along and to get checked out, pt discloses that she uses meth daily
[2019-11-04 18:19] LABS: Add Manual Diff / Slide Review NO; Basophils Absolute Auto 0 /uL (0-100); Basophils Percent Auto 0.3 % (0-2); Eosinophils Absolute Auto 100 /uL (0-450); Eosinophils Percent Auto 0.6 % (2-4); Hematocrit 33.6 % (36-46); Lymphocytes Absolute Auto 2000 /uL (1100-4500); Lymphocytes Percent Auto 19.6 % (25-40); Mean Corpuscular HGB Conc 32.7 % (30-36); Mean Corpuscular Hemoglobin 29.2 PG (26-34); Mean Corpuscular Volume 89.4 fL (80-100); Monocytes Absolute Auto 1200 /uL (0-900); Monocytes Percent Auto 11.4 % (3-14); Neutrophils Absolute Auto 7000 /uL (1500-7000); Neutrophils Percent Auto 68.1 % (50-75); Platelet Count 388 X10^3/uL (150-400); Red Blood Cell Count 3.76 X10^6/uL (4.0-5.2); Red Cell Distribution Width 13.6 % (11.6-14.8); White Blood Cell Count 10.2 X10^3/uL (4.5-11.0)
--- NOTE | 2019-11-04 18:28 | ED.GENADULT ---
HPI - General Adult General Chief complaint: OB/Uterine Contractions Stated complaint: , does not know how long, wants check up Time Seen by Provider: 11/04/19 17:31 Source: patient Mode of arrival: Family Vehicle Limitations: no limitations History of Present Illness HPI narrative: 24-year-old female who states she knows that she is . This is her 2nd . Found out almost 1 month ago that she was had another outside facility. Has not had any care after that. She is taking vitamins. She has no complaints today. No vaginal bleeding. No urinary symptoms. She has been treated for urinary tract infection after her last visit. No cramping. Here because she has no OB appointment set up. She recently arrived in local area. Is living with her mother. Does not have a primary doctor in the area. Is here to ?get the process started ?with finding a OB provider for Related Data Previous Rx's Medication Instructions Recorded ciprofloxacin HCl 500 mg PO BID #14 tab 07/27/18 Allergies Allergy/AdvReac Type Severity Reaction Status Date / Time No Known Drug Allergies Allergy Verified 11/04/19 17:27 Review of Systems Constitutional Constitutional: Denies fever(s) Cardiovascular Cardiovascular: Denies chest pain and Denies dyspnea Respiratory Respiratory: Denies dyspnea Gastrointestinal Gastrointestinal: Denies abdominal pain Genitourinary Genitourinary: Denies hematuria, Denies dysuria and Denies vaginal discharge Musculoskeletal Musculoskeletal: Denies myalgias and Denies arthralgias Integumentary/Breasts Skin/Breast: Denies lesions and Denies rash Neurologic Neurologic: Denies behavioral changes Psychiatric Psychiatric: Denies behavioral changes Hematologic/Lymphatic Hematologic/Lymphatic: Denies easy bleeding and Denies easy bruising Allergic/Immunologic Allergic/Immunologic: Denies urticaria Patient History Medical History Patient denies medical problems (Acute) Social History lives independently: Yes Smoking Status: Current every day smoker Smoking Status: Current every day smoker tobacco type: cigarettes alcohol intake frequency: 0-2 drinks per day Substance Use Type: methamphetamine Exam Initial Vital Signs Initial Vital Signs: Vital Signs Temperature 98.5 F 11/04/19 17:16 Pulse Rate 104 H 11/04/19 17:16 Respiratory Rate 18 11/04/19 17:16 Blood Pressure 127/85 11/04/19 17:16 Pulse Oximetry 100 11/04/19 17:16 Const General: cooperative and comfortable Limitations: mental status not altered HENVA Head: normal to inspection and normocephalic Resp Effort & Inspection: normal respiratory effort Cardio Rate: tachycardic GI Palpation: soft Skin Lesions: no lesions Rashes: no rashes Neuro General: alert Cognition: normal cognition Speech: speech normal Extrem General: normal to inspection Psych Appearance: grossly normal and well kempt Course Orders Ordered: ED Orders 11/04/19 18:00 Urine Culture Stat Urine Drug Screen, Rapid Stat Urine Microscopic Stat 11/04/19 18:11 ABO RH Type Stat Basic Metabolic Panel Stat Complete Blood Count AUTO DIFF Stat HCG Quantitative Stat Vital Signs Vital signs: Vital Signs - 8 hr 11/04/19 17:16 11/04/19 18:56 11/04/19 19:19 Temperature 98.5 F Pulse Rate 104 H 87 98 H Respiratory Rate 18 18 16 Blood Pressure 127/85 Blood Pressure [Right Arm] 123/79 Pulse Oximetry 100 100 96 Medical Decision Making Lab Data Result diagrams: 11/04/19 18:11 11/04/19 18:11 Labs: Lab Results 11/04/19 11/04/19 11/04/19 Range/Units 18:00 18:00 18:11 WBC 10.2 (4.5-11.0) X10^3/uL RBC 3.76 L (4.0-5.2) X10^6/uL Hgb 11.0 L (12.0-16.0) g/dL Hct 33.6 L (36-46) % MCV 89.4 (80-100) fL MCH 29.2 (26-34) PG MCHC 32.7 (30-36) % RDW 13.6 (11.6-14.8) % Plt Count 388 (150-400) X10^3/uL Neut % (Auto) 68.1 (50-75) % Lymph % (Auto) 19.6 L (25-40) % [place] % (Auto) 11.4 (3-14) % Eos % (Auto) 0.6 L (2-4) % Baso % (Auto) 0.3 (0-2) % Neut # (Auto) 7000 (0708-7368) /uL Lymph # (Auto) 2000 (6648-8920) /uL [place] # (Auto) 1200 H (0-900) /uL Eos # (Auto) 100 (0-450) /uL Baso # (Auto) 0 (0-100) /uL Sodium (137-145) mmol/L Potassium (3.4-5.1) mmol/L Chloride (98-107) mmol/L Carbon Dioxide (22-32) mmol/L BUN (7-17) mg/dL Creatinine (0.52-1.04) mg/dL Estimated GFR (>60) mL/min BUN/Creatinine Ratio (6-22) Glucose (70-100) mg/dL Calcium (8.4-10.2) mg/dL HCG, Quant mIU/mL Urine RBC 0-1/hpf (0-5/HPF) Urine WBC 10-30/hpf H (0-5/HPF) Ur Squamous Epith Cells 1-5 /hpf (0-5/HPF) Ur Transition Epith Cell 0-1/hpf (0-5/HPF) Urine Bacteria Few (2-10) H (None) Ur Culture Indicated? Specimen cultured U Opiates 300ng/mL cut Negative (Negative) Ur Oxycodone Screen Negative (Negative) Urine Methadone Screen Negative (Negative) Ur Barbiturates Screen Negative (Negative) U Tricyclic Antidepress Negative (Negative) Ur Phencyclidine Scrn Negative (Negative) Ur Amphetamines Screen Positive H (Negative) U Methamphetamines Scrn Positive H (Negative) Ur MDMA Scrn (Ecstasy) Positive H (Negative) U Benzodiazepines Scrn Negative (Negative) Urine Cocaine Screen Negative (Negative) U Marijuana (THC) Screen Negative (Negative) Blood Type 11/04/19 11/04/19 Range/Units 18:11 18:11 WBC (4.5-11.0) X10^3/uL RBC (4.0-5.2) X10^6/uL Hgb (12.0-16.0) g/dL Hct (36-46) % MCV (80-100) fL MCH (26-34) PG MCHC (30-36) % RDW (11.6-14.8) % Plt Count (150-400) X10^3/uL Neut % (Auto) (50-75) % Lymph % (Auto) (25-40) % [place] % (Auto) (3-14) % Eos % (Auto) (2-4) % Baso % (Auto) (0-2) % Neut # (Auto) (1941-2326) /uL Lymph # (Auto) (9792-8762) /uL [place] # (Auto) (0-900) /uL Eos # (Auto) (0-450) /uL Baso # (Auto) (0-100) /uL Sodium 137 (137-145) mmol/L Potassium 3.6 (3.4-5.1) mmol/L Chloride 102 (98-107) mmol/L Carbon Dioxide 26 (22-32) mmol/L BUN 10 (7-17) mg/dL Creatinine 0.50 L (0.52-1.04) mg/dL Estimated GFR > 60.0 (>60) mL/min BUN/Creatinine Ratio 20.0 (6-22) Glucose 84 (70-100) mg/dL Calcium 8.9 (8.4-10.2) mg/dL HCG, Quant 63477 mIU/mL Urine RBC (0-5/HPF) Urine WBC (0-5/HPF) Ur Squamous Epith Cells (0-5/HPF) Ur Transition Epith Cell (0-5/HPF) Urine Bacteria (None) Ur Culture Indicated? U Opiates 300ng/mL cut (Negative) Ur Oxycodone Screen (Negative) Urine Methadone Screen (Negative) Ur Barbiturates Screen (Negative) U Tricyclic Antidepress (Negative) Ur Phencyclidine Scrn (Negative) Ur Amphetamines Screen (Negative) U Methamphetamines Scrn (Negative) Ur MDMA Scrn (Ecstasy) (Negative) U Benzodiazepines Scrn (Negative) Urine Cocaine Screen (Negative) U Marijuana (THC) Screen (Negative) Blood Type O Positive Point of Care Testing Test Results Positive Urine Dip Bedside Urine Glucose Negative Bedside Urine Bilirubin - Negative Bedside Urine Ketone - Negative Urine Specific [place] 1.025 Bedside Urine Occult Blood - Negative Bedside Urine pH 6.0 Bedside Urine Protein +/- 15 Bedside Urine Urobilinogen - Negative Bedside Urine Nitrite - Negative Bedside Urine Leukocytes +/- 15 Esterase Point of care testing: Point of Care Testing Test Results Positive Urine Dip Bedside Urine Glucose Negative Bedside Urine Bilirubin - Negative Bedside Urine Ketone - Negative Urine Specific [place] 1.025 Bedside Urine Occult Blood - Negative Bedside Urine pH 6.0 Bedside Urine Protein +/- 15 Bedside Urine Urobilinogen - Negative Bedside Urine Nitrite - Negative Bedside Urine Leukocytes +/- 15 Esterase MDM Narrative Medical decision making narrative: Patient has no specific OB complaints today. She does have bacteria in her urine. A culture was pending. She was informed that we would contact her if we needed to start on antibiotics. She is Rh positive. Social work did evaluate the patient. It does appear that the patient is a active meth user. I did talk with the patient about this. I did inform her that methamphetamines or other drugs or alcohol is extremely harmful to herself and her unborn baby. She expressed understanding with this. Social work did see the patient in the ER as well. She was provided resources with regard to this. Patient was also given phone numbers that she can contact for the local OB group and also the health technology resource teacher to the hospital. There's no need for emergent ultrasound. Patient was given return precautions and follow-up instructions. She does have vitamins which she will continue to take. She expressed understanding and agreement with plan. Discharge Plan Departure Patient Disposition: Home Clinical Impression: Qualifiers: Weeks of gestation: unspecified Qualified Code(s): Z34.90 - Encounter for supervision of normal , unspecified, unspecified trimester Discharge Date/Time: 11/04/19 19:19 Instructions: DI for -- Discomforts and Remedies Activity Restrictions/Additional Instructions: It is important that you continue with your vitamins. I also recommend that you avoid drug or alcohol use. On Thursday you can contact the [facility] at 360 help you establish a OB provider. You can also contact the health technology resource teacher at [phone] here at the hospital to help with this as well. Return to the emergency department for any new or worsening symptoms Prescriptions: No Action ciprofloxacin HCl 500 mg tablet 500 mg PO BID Qty: 14 RF: 0
[2019-11-04 18:30] LABS: Blood Urea Nitrogen 10 mg/dL (7-17); Calcium 8.9 mg/dL (8.4-10.2); Carbon Dioxide 26 mmol/L (22-32); Chloride 102 mmol/L (98-107); Estimated Glomerular Filt Rate > 60.0 mL/min (>60); Glucose 84 mg/dL (70-100); HEMOLYSIS < 15 (0-50); Potassium 3.6 mmol/L (3.4-5.1); Sodium 137 mmol/L (137-145)
[2019-11-04 18:46] LABS: HCG Quantitative /Beta subunit 11035 mIU/mL
[2019-11-04 18:47] LABS: Ur Creatinine Normal (Normal); Ur Specific Gravity Normal (Normal); Urine pH Normal (Normal)
[2019-11-04 18:48] LABS: UR Morphine/Opiate cutoff 300 Negative (Negative); Urine Amphetamines Positive (Negative); Urine Cocaine Negative (Negative); Urine MDMA Positive (Negative); Urine Methamphetamines Positive (Negative); Urine Phencyclidine Negative (Negative); Urine Tetrahydrocannabinol Negative (Negative)
[2019-11-04 18:49] LABS: Urine Barbiturates Negative (Negative); Urine Benzodiazepines Negative (Negative); Urine Methadone Negative (Negative); Urine Oxycodone Negative (Negative); Urine Tricyclic Antidepressant Negative (Negative)
[2019-11-04 18:52] LABS: Bacteria Urine Few (2-10); Culture Indicated Urine Specimen Cultured; RBC Urine 0-1/HPF (0-5/HPF); Squamous Epithelial Cell Urine 1-5 /HPF (0-5/HPF); Transitional Epi Cells Urine 0-1/HPF (0-5/HPF); WBC Urine 10-30/HPF (0-5/HPF)
[2019-11-04 18:56] VITALS: PULSE 87; RESP 18; O2SAT 100
[2019-11-04 19:19] VITALS: BP 123/79; PULSE 98; RESP 16; O2SAT 96
--- NOTE | 2019-11-04 20:10 | CM.SWNOTE ---
Discharge Planning/Care Management [facility] [place] Binding Bench Worker [place] Start: 11/04/19 19:13 Freq: Status: Discharge Protocol: Document 11/04/19 19:48 DPL (Rec: 11/04/19 20:10 DPL [id number]) HOP PICKER/Binding Bench Worker Assessment Start date 11/04/19 Visit Start Time 06:30 End date 11/04/19 Visit End Time 08:00 Total time Care Management spent on 90 patient visit-in minutes Presenting Problem Pt presents to the ED expressing that she thinks that she may be , and is wanting a test to confirm. Pt acknowledges using methamphetamines twice per day as daily use, last use earlier today. She is accompanied by 2-friends and her mother. Precipitating Event(s) Pt shares that she was in chemical dependency detox from 10/07-10/11 last month, however has resumed daily use since discharge. She shared that she had her first child removed by CPS 2-years ago also due to her drug use. Pt resides with her mother in [place], is otherwise without permanent housing. Pregancey test was positive in the ED, patient believes that she is approx. 5-months , does not have a PCP and has had no care. Current Behavioral Health Provider(s) N/A Include Facility, Provider, Ph. # Family Hx of Behavioral Abuse U/[place] Support System(s) Mother, friends. School/Work Unemployed Family Hx of Behavioral Abuse Pt has long-term chemical dependency issues. She tested positive for both methamphetamines and MDMA ( Ecstacy) in the ED. Rehab Facilities? ((Date(s), Location(s) [facility] for rehab 09/2019 ) Support System(s) Mother, friends. Legal Matters - Outstanding Issues U/K Orientation (Person/Place/Time) Oriented X3 Affect Calm, cooperative Thought Content - Specify/Describe Normal/Congruent Obsessions, Delusions, Hallucinations Thought Processes (Jaovgjb-Tsayefjw-Diow Normal Lqqxsnid-Viavrlno-Cigadusmxm- Gizujzfqnwjvpo-Fhltntx-Cnaroanuiovr- Thought Blocking) Speech (Sqmaaz-Vkrr-Umpaghy-Rapid-Soft- Normal Loud-Pressured) Motor (Fvamkp-Dehmgbnwu-Pcya-Other) Normal Insight (Present-Partially Present- Present Impaired) Judgement (Intact-Impaired) Intact Impulse Control (Adequate-Impaired) Adequate Memory (Kowxrjtwf-Ukmshp-Bnjfgx, Intact Impaired-Intact) Concentration (Intact-Impaired) Intact Attention (Intact-Impaired) Intact Behavior (Appropriate-Inappropriate) Appropriate Suicidal Ideation (Plan) No Homicidal Ideation (Plan) No Intervention HOP PICKER met with pt/andres and assessed immediate needs/risks . Provided printed information for Maternity Support Services through [employer], explained the program and encouraged her to call on Thursday. Provided information re: [facility] and their transitional housing program. Provided the phone number for pt to f/u and obtain a PCP/COMMERCIAL SALES REPRESENTATIVE for care and support. HOP PICKER also assisted in obtaining Medicaid Transportation for pt 's ride home. Lastly, HOP PICKER called and completed a CPS report due to pt's drug use and known past experience with CPS removing her first child for the same reasons. RA Plan Pt will f/u with resources provided. CPS has documented this information and will keep the case open until the time she delivers the baby.
== END 2019-11-04 19:19 | disposition home or self-care (01) ==
PROVIDERS: Emergency Provider Emergency Medicine
DX: Z34.90 Encounter for supervision of normal pregnancy, unspecified, unspecified trimester (principal)
CPT/HCPCS: 36415; 80048; 80305; 81003; 81015; 81025; 84702; 85025; 86900; 86901; 87077; 87086; 87186; 99283

== ENCOUNTER → 2019-11-16 12:17 | Outpatient (CLI) | payer OTHER, MEDICAID, SELFPAY ==
--- NOTE | 2019-11-16 12:18 | DI.US.S_ITS ---
PROCEDURE: US OB >= 14 WEEKS FETUS INDICATIONS: INITIAL DATING FOR MARINA, LMP UNSURE OUTSIDE/PRIOR DATING DATA: Last menstrual period (LMP): Not available. LMP-based estimated date of delivery (MARINA): Not available. First dating scan (date and location): This study. Estimated date of delivery (MARINA) from first dating scan: 03/27/20. TECHNIQUE: Real-time scanning was performed of the fetus, with image documentation and biometric measurements. Endovaginal scanning: Not needed. COMPARISON: None. FINDINGS: General: A single living intrauterine gestation is present. Presentation: Breech. Placenta: Placental position is posterior, without previa. Amniotic fluid index: 12.6 cm, normal range is 5-24 cm. heart rate: 144 beats per minute. Maternal cervical canal: 3.6 cm long. Normal lower limit is 2.5 cm. biometrics: Biparietal diameter: 4.9 cm, 21 weeks 0 days Head circumference: 18.4 cm, 20 weeks 6 days Abdominal circumference: 16.0 cm, 21 weeks 1 day Femur length: 3.5 cm, 21 weeks 1 day Estimated gestational age from initial scan: not applicable. Composite gestational age from present scan: 21 weeks 1 day Estimated weight and percentile: 399 g. Measurement variability for biometric dating: +/- 7 days from 14 weeks to 15 weeks 6 days gestation, +/- 10 days from 16 weeks to 21 weeks 6 days gestation, +/- 2 weeks from 22 weeks to 27 weeks 6 days gestation, +/- 3 weeks for 28 weeks gestation or later. weight reference: 4500 g or EFW >90/95% is considered macrosomia or large for gestational age. EFW <10% is small for gestational age. EFW 5% or less is considered intra-uterine growth restriction. Anatomic survey: Neuro: Ventricles are non-dilated at less than 10 mm. Cisterna magna is normal at 3-11 mm. Cerebellum is normal in size and morphology. Nuchal skin fold: Normal at less than 6 mm between 14-21 weeks gestational age. Face: Nose and lips, facial profile are normal. Spine: Not well-seen. Heart: 4-chambered heart is present, with normal ventricular outflow tracts. Diaphragm: Diaphragm is intact. Stomach: Left-sided stomach is present. Kidneys: No hydronephrosis. Normal is less than 5 mm in 2nd trimester, less than 7 mm in 3rd trimester. Cord: 3-vessel cord has insertion eccentric, 3 cm from the lateral edge of the placenta. Bladder: Normal in size. Extremities: All 4 extremities identified. IMPRESSION: Relatively poorly seen the spine, otherwise normal anatomic survey except for eccentric cord insertion to the placenta, 3 cm from the lateral edge. Internally consistent growth parameters with a gestational age of 21 weeks 1 day and delivery date projected to be centered on 03/27/20. Dictated by: Moose Umana M.D. on 11/16/2019 at 15:26 Approved by: Moose Umana M.D. on 11/16/2019 at 15:29
== END ==
PROVIDERS: Visit Provider Specialist
DX: Z34.82 Encounter for supervision of other normal pregnancy, second trimester (principal); Z3A.21 21 weeks gestation of pregnancy
CPT/HCPCS: 76811

== ENCOUNTER → 2019-12-01 17:14 | Outpatient (CLI) | payer OTHER, MEDICAID, SELFPAY ==
[2019-12-01 19:55] LABS: Ur Creatinine Normal (Normal); Ur Specific Gravity Normal (Normal); Urine pH Normal (Normal)
[2019-12-01 19:56] LABS: UR Morphine/Opiate cutoff 300 Negative (Negative); Urine Amphetamines Positive (Negative); Urine Barbiturates Negative (Negative); Urine Benzodiazepines Negative (Negative); Urine Cocaine Negative (Negative); Urine MDMA Positive (Negative); Urine Methadone Negative (Negative); Urine Methamphetamines Positive (Negative); Urine Oxycodone Negative (Negative); Urine Phencyclidine Negative (Negative); Urine Tetrahydrocannabinol Negative (Negative); Urine Tricyclic Antidepressant Negative (Negative)
[2019-12-01 21:17] LABS: Urine N gonorrhoeae NOT DETECTED
[2019-12-01 21:29] LABS: Urine Chlamydia NOT DETECTED
== END ==
PROVIDERS: Visit Provider Obstetrics & Gynecology
DX: Z11.3 Encounter for screening for infections with a predominantly sexual mode of transmission (principal); Z34.82 Encounter for supervision of other normal pregnancy, second trimester; Z3A.23 23 weeks gestation of pregnancy; O99.320 Drug use complicating pregnancy, unspecified trimester
CPT/HCPCS: 80305; 87491; 87591

== ENCOUNTER → 2019-12-30 08:51 | Outpatient (CLI) | payer OTHER, MEDICAID, SELFPAY ==
[2019-12-30 10:50] LABS: GTT (PREG) 1 Hour PP 50gm Dose 89 mg/dL (76-139)
[2019-12-30 11:23] LABS: Hepatitis B Surface Antigen NEGATIVE s/c (NEGATIVE); Rubella Antibody IgG 0.2 IU/mL (>15)
[2019-12-30 11:38] LABS: HIV 1 & 2 Ab/Ag 4th Gen Combo NEGATIVE (NEGATIVE); Hep C Virus Ab w/Reflex Quant NEGATIVE s/c (NEGATIVE)
[2020-01-01 18:45] LABS: RPR Screen Nonreactive (Nonreactive)
[2020-01-03 18:19] LABS: Varicella IgG Antibody < 135.00 Index (< 135.00)
== END ==
PROVIDERS: Referring Provider Obstetrics & Gynecology; Visit Provider Obstetrics & Gynecology
DX: Z34.82 Encounter for supervision of other normal pregnancy, second trimester (principal)
CPT/HCPCS: 36415; 82950; 86592; 86762; 86787; 86803; 86850; 87077; 87086; 87186; 87340; 87389

== ENCOUNTER 2020-01-11 08:50 | Emergency (ER) | payer OTHER, MEDICAID, SELFPAY ==
--- NOTE | 2020-01-11 09:04 | ED_ITS ---
HPI - General Adult General Chief complaint: Upper Respiratory Symptoms Stated complaint: cough sore throat Time Seen by Provider: 01/11/20 08:59 Source: patient Mode of arrival: Ambulatory Limitations: no limitations History of Present Illness HPI narrative: Patient is a 24-year-old 7 week female here for evaluation of approximately 12 hours of a nonproductive cough and sore throat. Some sinus congestion. A headache. No sinus tenderness. Has not taken any Tylenol or ibuprofen. No cramping or vaginal bleeding or loss of fluid. Related Data Home Medications Medication Instructions Recorded Confirmed ferrous sulfate 325 mg (65 mg 325 mg PO DAILY 11/15/19 12/01/19 iron) tablet prenat.vits,ruddy,zks-ouhf-cxtcx 1 tab PO DAILY 11/15/19 12/01/19 Previous Rx's Medication Instructions Recorded cephalexin 500 mg capsule 500 mg PO .COMPLEX #14 cap 01/03/20 docosahexaenoic acid 200 mg capsule See Rx Instructions PO .COMPLEX 01/03/20 #90 cap Allergies Allergy/AdvReac Type Severity Reaction Status Date / Time No Known Drug Allergies Allergy Verified 12/01/19 16:07 Review of Systems Constitutional Constitutional: Denies fever(s) ENT Ears, Nose, Mouth, and Throat: Reports sore throat Cardiovascular Cardiovascular: Denies chest pain and Denies dyspnea Respiratory Respiratory: Reports cough and Denies dyspnea Musculoskeletal Musculoskeletal: Denies myalgias and Denies arthralgias Integumentary/Breasts Skin/Breast: Denies lesions and Denies rash Neurologic Neurologic: Denies behavioral changes Psychiatric Psychiatric: Denies behavioral changes Hematologic/Lymphatic Hematologic/Lymphatic: Denies easy bleeding and Denies easy bruising Patient History Medical History Anxiety (Acute) Depression (Acute) Patient denies medical problems (Acute) Substance abuse (Acute) Family History Father Hypertension Mother Gastric ulcer Bilateral breast cysts Depression Anxiety Grandmother Breast cancer Grandfather No problems noted. Grandmother Myocardial infarction Grandfather No problems noted. 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 Smoking Status: Current every day smoker tobacco type: cigarettes alcohol intake frequency: 0-2 drinks per day Substance Use Type: methamphetamine Exam Initial Vital Signs Initial Vital Signs: Vital Signs Temperature 98.4 F 01/11/20 09:05 Pulse Rate 85 01/11/20 09:05 Respiratory Rate 18 01/11/20 09:05 Blood Pressure 115/68 01/11/20 09:05 Pulse Oximetry 98 01/11/20 09:05 Const General: cooperative, comfortable and well developed Limitations: mental status not altered HENMT Head: normal to inspection and normocephalic Ears: TM's normal bilaterally Nose: external nose normal Face and sinus: normal facial exam Teeth and gingiva: dentition normal Throat: postnasal drainage Neck Lymphatic: No lymphadenopathy Cardio Rate: regular rate GI Inspection: non-distended Palpation: soft and No firm Skin Lesions: no lesions Rashes: no rashes Neuro General: alert and awake Cognition: normal cognition Speech: speech normal Extrem General: normal to inspection and capillary refill normal Course Vital Signs Vital signs: Vital Signs - 8 hr 01/11/20 09:05 Temperature 98.4 F Pulse Rate 85 Respiratory Rate 18 Blood Pressure 115/68 Pulse Oximetry 98 Medical Decision Making Lab Data Lab results reviewed: Yes I reviewed the patient's lab results. Labs: Point of Care Testing Rapid Strep A Negative Point of care testing: Point of Care Testing Rapid Strep A Negative MDM Narrative Medical decision making narrative: Strep was negative. Low suspicion for the flu secondary to her symptoms and lack of a fever. Is not vomiting. Has no OB related symptoms today. I feel that she is low risk for COVID-19 and I did discuss this with her and she would like to hold on testing for now. We discussed return precautions and follow-up instructions. She expressed understanding and agreement. Discharge Plan Departure Patient Disposition: Home Clinical Impression: Pharyngitis Qualifiers: Pharyngitis/tonsillitis etiology: unspecified etiology Qualified Code(s): J02.9 - Acute pharyngitis, unspecified Instructions: Sore Throat Activity Restrictions/Additional Instructions: Recommend that you wash her hands frequently. Cover your cough. Keep all of your scheduled appointments. Return to the emergency department for any new or worsening symptoms Prescriptions: No Action prenat.vits,ruddy,eix-tenv-qymck Tablet 1 tab PO DAILY RF: 0 ferrous sulfate [Feosol] 325 mg (65 mg iron) tablet 325 mg PO DAILY RF: 0 DHA 200 mg capsule See Rx Instructions PO .COMPLEX Qty: 90 RF: 1 cephalexin 500 mg capsule 500 mg PO .COMPLEX Qty: 14 RF: 0
[2020-01-11 09:05] VITALS: BP 115/68; PULSE 85; RESP 18; TEMP 36.9; O2SAT 98
[2020-01-11 10:12] VITALS: BP 115/60; PULSE 70; RESP 16; O2SAT 97
== END 2020-01-11 10:04 | disposition home or self-care (01) ==
PROVIDERS: Emergency Provider Emergency Medicine
DX: J02.9 Acute pharyngitis, unspecified (principal)
CPT/HCPCS: 87880; 99281; 99282

== ENCOUNTER → 2020-03-21 10:32 | Outpatient (CLI) | payer OTHER, MEDICAID, SELFPAY ==
[2020-03-21 16:20] LABS: UR Morphine/Opiate cutoff 300 Negative (Negative); Ur Creatinine Normal (Normal); Ur Specific Gravity Normal (Normal); Urine Amphetamines Negative (Negative); Urine Barbiturates Negative (Negative); Urine Benzodiazepines Negative (Negative); Urine Cocaine Negative (Negative); Urine MDMA Negative (Negative); Urine Methadone Negative (Negative); Urine Methamphetamines Negative (Negative); Urine Oxycodone Negative (Negative); Urine Phencyclidine Negative (Negative); Urine Tetrahydrocannabinol Negative (Negative); Urine Tricyclic Antidepressant Negative (Negative); Urine pH Normal (Normal)
[2020-03-22 10:38] LABS: Strep Grp B PCR POS for Grp B Strep
== END ==
PROVIDERS: Visit Provider Obstetrics & Gynecology
DX: O99.323 Drug use complicating pregnancy, third trimester (principal); Z87.440 Personal history of urinary (tract) infections; Z3A.39 39 weeks gestation of pregnancy
CPT/HCPCS: 80305; 87086; 87653

== ENCOUNTER → 2020-03-22 08:46 | Outpatient (CLI) | payer OTHER, MEDICAID, SELFPAY ==
--- NOTE | 2020-03-22 08:48 | DI.US.S_ITS ---
PROCEDURE: US OB FOLLOW UP INDICATIONS: FOLLOWUP. SPINE NOT SEEN WELL ON ANATOMY SCAN OUTSIDE/PRIOR DATING DATA: Last menstrual period (LMP): Not available. LMP-based estimated date of delivery (MARINA): Not available. First dating scan (date and location): 11/16/19. Estimated date of delivery (MARINA) from first dating scan: 03/27/20. TECHNIQUE: Real-time scanning was performed of the fetus, with image documentation. Endovaginal scanning: Not needed COMPARISON: [facility], OB >= 14 WEEKS FETUS, 03/21/2020, 11:03. [facility], OB >= 14 WEEKS FETUS, 11/16/2019, 12:26. FINDINGS: A single living intrauterine gestation is present. Presentation: Vertex. Placenta: Placental position is fundal, without previa. Amniotic fluid index: 12.3 cm, normal range is 5-24 cm. heart rate: 141 beats per minute. Estimated gestational age from initial scan: 39 weeks 2 days. Note: spine well visualized and appears normal. IMPRESSION: Improved visualization due to change in positioning, allowing visualization of the spine, completing the anatomic survey. The delivery date remains projected to be centered on 03/27/20 Dictated by: Moose Umana M.D. on 03/22/2020 at 10:24 Approved by: Moose Umana M.D. on 03/22/2020 at 10:26
== END ==
PROVIDERS: PCP Specialist; Referring Provider Obstetrics & Gynecology; Visit Provider Obstetrics & Gynecology
DX: Z36.2 Encounter for other antenatal screening follow-up (principal); Z3A.39 39 weeks gestation of pregnancy
CPT/HCPCS: 76816

== ENCOUNTER 2020-03-22 18:25 | Observation (INO) | payer OTHER, MEDICAID, SELFPAY ==
[2020-03-22 19:35] LABS: Hematocrit 33.7 % (36-46); Hemoglobin 11.3 g/dL (12.0-16.0); Mean Corpuscular HGB Conc 33.5 % (30-36); Mean Corpuscular Hemoglobin 29.7 PG (26-34); Mean Corpuscular Volume 88.6 fL (80-100); Platelet Count 223 X10^3/uL (150-400); Red Cell Distribution Width 13.6 % (11.6-14.8); White Blood Cell Count 7.6 X10^3/uL (4.5-11.0)
[2020-03-22 19:35] LABS: Creatinine Urine Random 73.2 mg/dL; Protein (Total) Urine Random 10 mg/dL (0-12); Protein Creatinine Ratio Urine 0.13 GRAM/24H
[2020-03-22 19:50] LABS: Alanine Aminotransferase 6 IU/L (<35); Albumin 3.6 g/dL (3.5-5.0); Albumin Globulin Ratio 1.1 (1.0-2.8); Alkaline Phosphatase 133 U/L (38-126); Aspartate Aminotransferase 21 IU/L (14-36); Bilirubin Total 0.3 mg/dL (0.2-1.3); Blood Urea Nitrogen 13 mg/dL (7-17); Calcium 9.2 mg/dL (8.4-10.2); Carbon Dioxide 22 mmol/L (22-32); Chloride 105 mmol/L (98-107); Estimated Glomerular Filt Rate > 60.0 mL/min (>60); Globulin 3.4 g/dL (1.7-4.1); Glucose 83 mg/dL (70-100); HEMOLYSIS < 15 (0-50); Potassium 4.5 mmol/L (3.4-5.1); Sodium 134 mmol/L (137-145)
--- NOTE | 2020-03-22 20:28 | PM.OBTRLD ---
Visit Information Visit Information Date of evaluation: 03/22/20 Primary OB Provider: Danay Blake On-call OB Provider: Danay Blake Reason for Evaluation: Yes non-stress test and Yes other Comments/Additional reasons for admission: BP check, preeclamptic labs 24-year-old female with EGA 39 weeks 3 days, MARINA set by a 21 week ultrasound, brought in to recheck her blood pressure and if needed then preeclamptic labs. Patient had an elevated BP in the office of 140/82 and persisted that 142/82 on recheck. She was sent to birthing center but got lost on the way and her mother needed to get to work. She returns today for BP check. Her 1st was complicated by preeclampsia. She denies headache, scotomata, nausea, or abdominal pain. Feeling good movement. Vital Signs Vital Signs: Initial BP 136/83, 134/80. Subsequently BP's increased to 138-144/88-95. BP's is high as 141/91, 144/93, 138/95. Now on left side decreased to 125/82. 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 Subsequently BP's increased to 138-144/88-95. BP's is high as 141/91, 144/93, 138/95. Now on left side decreased to 125/82. Pulse 82 Narrative Exam Narrative: General: Well-appearing female Abdomen: Gravid, nontender Extremities no pedal edema DTR: 2+ patellar no clonus Cervix 4/75/-1 EFM: Baseline 150 with accelerations to 170-180. Multiple, then prolonged accelerations, with audible much movement in the room. Baby subsequently did later settled back to baseline 150s. Moderate variability, reactive. No decelerations until 90 minutes into monitoring when after moving she had an isolated variable deceleration to 100 with good recovery. Next 20 minutes baby without further decelerations, moderate variability, positive accelerations. Objective Labs Result Diagrams: 03/22/20 19:30 03/22/20 19:30 Labs: Laboratory Results - last 24 hr 03/22/20 03/22/20 03/22/20 18:20 19:30 19:30 WBC 7.6 RBC 3.80 L Hgb 11.3 L Hct 33.7 L MCV 88.6 MCH 29.7 MCHC 33.5 RDW 13.6 Plt Count 223 Sodium 134 L Potassium 4.5 Chloride 105 Carbon Dioxide 22 BUN 13 Creatinine 0.65 Estimated GFR > 60.0 BUN/Creatinine Ratio 20.0 Glucose 83 Calcium 9.2 Total Bilirubin 0.3 AST 21 ALT 6 Alkaline Phosphatase 133 H Total Protein 7.0 Albumin 3.6 Globulin 3.4 Albumin/Globulin Ratio 1.1 U Random Total Protein 10 Urine Creatinine 73.2 Protein/Creatinin Ratio 0.13 Evaluation Evaluation Laboratory results: Laboratory Tests 03/22/20 03/22/20 03/22/20 18:20 19:30 19:30 WBC 7.6 RBC 3.80 L Hgb 11.3 L Hct 33.7 L MCV 88.6 MCH 29.7 MCHC 33.5 RDW 13.6 Plt Count 223 Sodium 134 L Potassium 4.5 Chloride 105 Carbon Dioxide 22 BUN 13 Creatinine 0.65 Estimated GFR > 60.0 BUN/Creatinine Ratio 20.0 Glucose 83 Calcium 9.2 Total Bilirubin 0.3 AST 21 ALT 6 Alkaline Phosphatase 133 H Total Protein 7.0 Albumin 3.6 Globulin 3.4 Albumin/Globulin Ratio 1.1 U Random Total Protein 10 Urine Creatinine 73.2 Protein/Creatinin Ratio 0.13 Diagnosis, Plan/Disposition Final Diagnosis (1) Gestational HTN: Current Visit: Yes Status: Acute Plan/Disposition Plan: I recommended induction of labor. Patient agreeable to induction. Currently busy in the birthing center for tonight to start induction,. Patient cannot stay tonight anyway and is stable for discharge home overnight. Scheduled for induction for tomorrow morning. After over 90 minutes of monitoring, she did have an isolated deceleration. Discussed I would prefer to monitor her another hour, but she very much desired leaving since she had her mother's car who needed to go to work tonight. I counseled her on possible risks including risk of stillbirth. Discussed however with category 1 tracing for entire time prior, I feel this was an isolated incident, is some increased risks with that further monitoring but agreeable to discharging her if she strongly desired. Patient discharge. Will return tomorrow. Told her to call for any decreased movement.
[2020-03-22 20:49] LABS: Uric Acid 6.6 mg/dL (2.5-6.2)
[2020-03-22 21:53] LABS: UR Morphine/Opiate cutoff 300 Negative (Negative); Ur Creatinine 20 (Normal); Ur Specific Gravity 1.025 (Normal); Urine Amphetamines Negative (Negative); Urine Barbiturates Negative (Negative); Urine Benzodiazepines Negative (Negative); Urine Cocaine Negative (Negative); Urine MDMA Negative (Negative); Urine Methadone Negative (Negative); Urine Methamphetamines Negative (Negative); Urine Oxycodone Negative (Negative); Urine Phencyclidine Negative (Negative); Urine Tetrahydrocannabinol Negative (Negative); Urine Tricyclic Antidepressant Negative (Negative); Urine pH 5 (Normal)
[2020-03-22 22:33] LABS: COVID19 -Nasal RAPID Negative (Negative)
== END 2020-03-22 21:20 | disposition home or self-care (01) ==
PROVIDERS: Admitting Provider Obstetrics & Gynecology; PCP Specialist; Referring Provider Obstetrics & Gynecology; Visit Provider Obstetrics & Gynecology
DX: O13.3 Gestational [pregnancy-induced] hypertension without significant proteinuria, third trimester (principal); Z3A.39 39 weeks gestation of pregnancy; Z36.2 Encounter for other antenatal screening follow-up
CPT/HCPCS: 36415; 59025; 59050; 76816; 80053; 80305; 82570; 84156; 84550; 85027; 87635; G0378; G0379

== ENCOUNTER 2020-03-23 08:12 | Inpatient (IN) | payer OTHER, MEDICAID, SELFPAY ==
[2020-03-23 09:49] LABS: Add Manual Diff / Slide Review NO; Basophils Absolute Auto 0 /uL (0-100); Basophils Percent Auto 0.7 % (0-2); Eosinophils Absolute Auto 0 /uL (0-450); Eosinophils Percent Auto 0.8 % (2-4); Hematocrit 34.9 % (36-46); Hemoglobin 11.5 g/dL (12.0-16.0); Lymphocytes Absolute Auto 1500 /uL (1100-4500); Lymphocytes Percent Auto 23.4 % (25-40); Mean Corpuscular HGB Conc 32.9 % (30-36); Mean Corpuscular Hemoglobin 29.2 PG (26-34); Mean Corpuscular Volume 88.8 fL (80-100); Monocytes Absolute Auto 800 /uL (0-900); Monocytes Percent Auto 12.5 % (3-14); Neutrophils Absolute Auto 3900 /uL (1500-7000); Neutrophils Percent Auto 62.6 % (50-75); Platelet Count 250 X10^3/uL (150-400); Red Blood Cell Count 3.93 X10^6/uL (4.0-5.2); Red Cell Distribution Width 14.1 % (11.6-14.8); White Blood Cell Count 6.3 X10^3/uL (4.5-11.0)
[2020-03-23] MEDS: LACTATED RINGERS 1,000 ML 100 ML IV ×2 (09:59→13:12)
[2020-03-23] MEDS: PENICILLIN G POTASSIUM 5,000,000 UNIT in DEXTROSE 5% IN WATER 250 ML IV (09:59)
[2020-03-23] MEDS: OXYTOCIN PREMIX 30 UNIT/500 ML PLAST..BAG IV (10:09)
--- NOTE | 2020-03-23 10:09 | PM.OBHP.1 ---
OB HPI Date/Time Date of admission: 03/23/20 Date Patient Seen: 03/23/20 Time Patient Seen: 08:30 History of Present Condition Chief complaint: MATERNITY : 2 Para: 1 Narrative: Rowena Garcia is a 24 year old female who is being admitted at 39 weeks for induction of labor due to gestational hypertension. Her MARINA is 03/27/2020, set by a 21 week ultrasound. She discovered she was approximately 1 month prior, but LMP had been unknown. BP at her 1st visit at 23 weeks was mildly elevated, however she was anxious and urine toxicology positive for med and phentermine.. BP at prior ED visit the month prior was normal and noted to be normal at other prior ED visits. BP improved at next visit in 2nd trimester. At her recent visit 2 days ago, BP elevated to 142/92. Repeat checked the next day, yesterday and she had some persistent, BP elevations, up to 138/95, 143/93 consistent with gestational hypertension. Preeclamptic labs were normal except uric acid 6.6. Urine protein creatinine ratio was 0.13. also complicated by substance use in early to mid and limited care. Urine toxicology positive for metamphetamine and ecstacy. She reported stopping substance use after her 1st visit and subsequent urine toxicology screen at 28 weeks and 39 weeks were both negative. She is being admitted for induction of labor for gestational hypertension. Indications Indication for induction OB: medical complication (Gestational hypertension) History of Present care: limited care (Three visits) and initiated at week # (21 weeks in ED) Dating criteria: based on 2nd trimester US only Ultrasounds: normal mid trimester US and other (Thirty-nine week ultrasound EFW 5 lb 14 oz, normal RONALD) Obstetrical complications: gestational hypertension Preadmission Labs Blood type: O (+) positive -: Antibody screen: negative, GBS status: positive, HBsAG: negative, HIV: negative and RPR/VDLR: negative -: Chlamydia screen: not detected and Gonorrhea screen: not detected -: Rubella: not immune and Varicella: not immune 1 hr GTT: 89 Evaluation Evaluation Baseline heart rate: 130 Variability: Average (6-10) monitor accelerations: Present monitor decelerations: Absent Category of Tracing: I Cervical dilation (cm): 4 Cervical effacement (%): 75 station: -1 Laboratory results: Laboratory Tests 05/29/20 09:30 WBC 6.3 RBC 3.93 L Hgb 11.5 L Hct 34.9 L MCV 88.8 MCH 29.2 MCHC 32.9 RDW 14.1 Plt Count 250 Neut % (Auto) 62.6 Lymph % (Auto) 23.4 L Finney % (Auto) 12.5 Eos % (Auto) 0.8 L Baso % (Auto) 0.7 Neut # (Auto) 3900 Lymph # (Auto) 1500 Finney # (Auto) 800 Eos # (Auto) 0 Baso # (Auto) 0 PFSH Social History marital status: unmarried,single number of children: 1 household members: other (Mother) lives independently: Yes pets and animals: No education level: other occupational status: unemployed current occupational exposures/hazards: No special luis fernando needs: No Smoking Status: Current every day smoker Tobacco: How many years used: 7 quit status: considering quitting second hand exposure: Yes alcohol intake: current 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 Noted some minimal pink discharge this morning after wiping, no heavy vaginal bleeding, no leakage of fluid. Denies feeling any contractions. Feels good movement. Exam Vital Signs (past 8 hours): Afebrile, BP 125/96, pulse 75 Narrative Exam Narrative: General: Well-appearing female Abdomen: Gravid, nontender By Pablo maneuver, vertex presentation Extremities: No edema DTR: Patellar 2+, no clonus Cervix last p.m.: 4 cm/75%, vertex well applied Objective Labs Result Diagrams: 03/23/20 09:30 Labs: Laboratory Results - last 24 hr 03/23/20 09:30 WBC 6.3 RBC 3.93 L Hgb 11.5 L Hct 34.9 L MCV 88.8 MCH 29.2 MCHC 32.9 RDW 14.1 Plt Count 250 Neut % (Auto) 62.6 Lymph % (Auto) 23.4 L Finney % (Auto) 12.5 Eos % (Auto) 0.8 L Baso % (Auto) 0.7 Neut # (Auto) 3900 Lymph # (Auto) 1500 Finney # (Auto) 800 Eos # (Auto) 0 Baso # (Auto) 0 Assessment and Plan Assessment and Plan Assessment and Plan narrative: 39 weeks, gestational HTN. Admitted for induction of labor. IV placed. CBC, type and screen ordered. Pre-e labs not repeated, normal last pm. NST reactive, will start Pitocin for induction. IV penicillin ordered to give now for +GBS, prophylaxis. Urine tox ordered with pt request/consent.
[2020-03-23 11:25] LABS: UR Morphine/Opiate cutoff 300 Negative (Negative); Ur Creatinine 20 (Normal); Ur Specific Gravity 1.025 (Normal); Urine Amphetamines Negative (Negative); Urine Barbiturates Negative (Negative); Urine Benzodiazepines Negative (Negative); Urine Cocaine Negative (Negative); Urine MDMA Negative (Negative); Urine Methadone Negative (Negative); Urine Methamphetamines Negative (Negative); Urine Phencyclidine Negative (Negative); Urine Tetrahydrocannabinol Negative (Negative); Urine Tricyclic Antidepressant Negative (Negative); Urine pH 7 (Normal)
[2020-03-23 11:26] LABS: Urine Oxycodone Negative (Negative)
[2020-03-23] MEDS: FENT 2MCG/ML BUPIV 0.125% EPI 200 MCG/100 ML PLAST..BAG 8 MCG EPIDURAL (13:12)
[2020-03-23] MEDS: PENICILLIN G POTASSIUM 3,000,000 UNIT/50 ML FROZ.PIGGY 100 UNIT IV (14:05)
--- NOTE | 2020-03-23 14:24 | PM.OBPNLAB ---
Date/Time Date Patient Seen: 03/23/20 Time Patient Seen: 13:55 Pain Control Pain control: epidural Comments: Patient was becoming mildly uncomfortable with contractions prior to the epidural. Opted for epidural on earlier side due to anesthesiologist going to be in the OR for while. Pelvic Exam Dilation (cm): 6 Effacement (%): 75 station: -1 Amniotic membrane status: Intact Comments: Checked by RN just a few minutes ago when Brennan placed Contractions Pitocin rate (mU/min): 10 Contraction frequency (min): 2 Contraction pattern: Regular Status status: Category l Heart Rate Baseline: 130 Monitor Accelerations: Present Monitor Decelerations: Absent Monitor Variability: Moderate Assessment and Plan Assessment: induction ongoing Plan: continuous present management Comments: Continue Pitocin. Will AROM to augment, 1 -2 hours after 2nd dose of penicillin for GBS prophylaxis which is about to be hung, pt desires AROM to speed up labor.
[2020-03-23 16:19] VITALS: BP 131/89
--- NOTE | 2020-03-23 17:48 | P.PCNOB_ITS ---
Events: Induced HTN Labor & Delivery Delivery date: 03/23/20 Cervical ripening method: none Induction method: per pitocin protocol Delivery augmentation: rupture of membranes Delivery monitor: external FHT Route of delivery: L&D Laceration Description: Periurethral - 1st Degree Delivery repair: chromic Estimated blood loss (mL): 200 Anesthesia type: Epidural Complications: none Narrative: She progressed to completely dilated. On exam membranes bulging down to introitus with the contraction, vertex was 2+ station. Artificial rupture membranes performed, light meconium fluid noted. With next contraction vertex spontaneously descended to 3+ station. Position GOPI. She was prepped and draped for delivery. Vertex and noted to be just inside the introitus. With holding back her legs with the next contraction, the vertex began delivering through the introitus, even without maternal pushing effort, but not fully delivered. Instructed patient to then give a push and she delivered the vertex. No nuchal cord was present. Anterior followed by posterior shoulder were delivered without difficulty with the patient pushing, followed by the remainder of the body. Cord was wrapped around the leg once. A baby girl was delivered at 1643. The baby cried spontaneously, appeared vigorous and was placed on the maternal abdomen. After 1 minute, cord was clamped and cut. Placenta delivered spontaneously approximately 5 minutes later. She had normal bleeding after delivery of the placenta. She was given routine Pitocin IV. On inspection she had a first-degree right periurethral laceration which was somewhat wide and bleeding inferiorly. This was repaired in the usual fashion with 3 0 chromic. Inspection revealed the perineum and vaginal sidewalls to be intact. The cervix palpated to be intact. She continued to do well and was left to recover in good condition. Weight of the baby is pending. Apgars were 9,9. [place] Baby 1: Infant gender: Female Presentation: vertex position: Right Occiput Anterior Placenta delivery description: Spontaneous cord vessel description: Around Extremity x1 score (1 min): 9 score (5 min): 9 Plan for aftercare: left to recover in good condition
[2020-03-23] MEDS: LANOLIN OINT 7 GM 1 APPLIC TOP (19:40)
[2020-03-23 21:42] LABS: Alanine Aminotransferase 5 IU/L (<35); Alkaline Phosphatase 112 U/L (38-126); Aspartate Aminotransferase 26 IU/L (14-36); BUN Creatinine Ratio 21.2 (6-22); Bilirubin Total 0.4 mg/dL (0.2-1.3); Blood Urea Nitrogen 14 mg/dL (7-17); Calcium 9.2 mg/dL (8.4-10.2); Carbon Dioxide 26 mmol/L (22-32); Chloride 105 mmol/L (98-107); Estimated Glomerular Filt Rate > 60.0 mL/min (>60); Globulin 3.1 g/dL (1.7-4.1); Glucose 85 mg/dL (70-100); HEMOLYSIS 49 (0-50); Potassium 4.2 mmol/L (3.4-5.1); Sodium 135 mmol/L (137-145); Total Protein 6.1 g/dL (6.3-8.2)
--- NOTE | 2020-03-24 10:32 | PM.OBDS.1 ---
Discharge Providers Provider Date of admission: 03/23/20 08:12 Discharge Date: 03/24/20 Primary care physician: Jeanie Coyle MD Consults: 03/23/20 18:13 Consult to WATER TRUCK DRIVER - Manager Casino Routine Comment: 03/24/20 17:43 Consult to Business Applications Developer Routine Comment: Discharge provider: Mily Serrano MD Summary Hospital Course Date Patient Seen: 03/24/20 Time Patient Seen: 10:00 Procedures: Spontaneous vaginal delivery Hospital Course: The pt presented for IOL due to gestational HTN at 39 weeks. She had limited care with only 3 visits, with the initial visit urine tox testing positive for methamphetamines and MDMA, and subsequent urine tox negative. The pt remained asymptomatic for pre-eclampsia, and initial lab work was negative as well. She was induced with pitocin, with augmentation with AROM with clear fluid present. She was GBS positive, and received adequate prophlaxis with penicillin. The pt progressed to complete and had an of a viable baby girl at 16:43 on 03/23 without complications. 1st degree laceration was repaired. , there were no complications. In the immediate period there were several elevated BPs to > 140/90, however none to severe range. These then normalized. At the time of discharge she was voiding, ambulating, and passing flatus without difficulty. Her lochia was decreasing appropriately. Her pain was well controlled. She is working on with a nipple shield, but did give some formula supplementation. She will f/u in clinic in 6 weeks for her check. Peripartum Data Infant Delivery Method: Natural Vaginal Laceration description: Perineal - 1st Degree Episiotomy description: None Procedures: Spontaneous vaginal delivery complications: none [place] 1: Gender: Female Disposition of : other (on CPS hold in hospital) Discharge Diagnosis (1) Spontaneous vaginal delivery: Status: Acute (2) Gestational HTN: Status: Acute Time Spent with Patient Time attestation: Total time spent providing and/or coordinating discharge services: Time spent: Greater than 30 minutes Objective Labs Result Diagrams: 03/23/20 09:30 03/23/20 21:05 Labs: Laboratory Results - last 24 hr 03/23/20 03/23/20 09:00 21:05 Sodium 135 L Potassium 4.2 Chloride 105 Carbon Dioxide 26 BUN 14 Creatinine 0.66 Estimated GFR > 60.0 BUN/Creatinine Ratio 21.2 Glucose 85 Calcium 9.2 Total Bilirubin 0.4 AST 26 ALT 5 Alkaline Phosphatase 112 Total Protein 6.1 L Albumin 3.0 L Globulin 3.1 Albumin/Globulin Ratio 1.0 U Opiates 300ng/mL cut Negative Ur Oxycodone Screen Negative Urine Methadone Screen Negative Ur Barbiturates Screen Negative U Tricyclic Antidepress Negative Ur Phencyclidine Scrn Negative Ur Amphetamines Screen Negative U Methamphetamines Scrn Negative Ur MDMA Scrn (Ecstasy) Negative U Benzodiazepines Scrn Negative Urine Cocaine Screen Negative U Marijuana (THC) Screen Negative Exam Narrative Exam Narrative: Gen: NAD, sitting comfortably in bed, appears well CV: RRR, no murmurs Resp: clear to auscultation bilaterally Abd: soft, nontender, nondistended, fundus firm and below the umbilicus Ext: no edema Discharge Plan Discharge Plan Patient Disposition: Home Discharge orders & Medications Prescriptions: New acetaminophen 325 mg Tablet 650 mg PO Q6HR PRN (Reason: Pain, Mild (1-3)) Qty: 30 RF: 0 Dermoplast (with menthol) 20-0.5 % Aerosol 1 spray topical Q1HR PRN (Reason: Pain, Moderate (4-6)) Qty: 54 RF: 0 ibuprofen 600 mg Tablet 600 mg PO Q6HR PRN (Reason: Pain, Mild (1-3)) Qty: 30 RF: 0 [id number] Cream 1 applic topical PRN PRN (Reason: Tenderness) Qty: 15 RF: 0 Follow up/Referrals: Jeanie Coyle MD [Primary Care Provider] - Danay Blake MD [Physician] - 6 Weeks (Please call on Thursday for an appointment to see for 6 weeks for check.. ) Diet/Activity/Treatments Diet: Diet as Tolerated and Regular Skin/Wound/Dressing Care Report to your healthcare provider any signs of infection, such as:: chills, fever, increased pain and unusual drainage Visit Report/Discharge Packet Instructions: DI for Labor and Delivery, Vaginal Visit Report Forms: Patient Portal/API, Stroke Signs & Symptoms Discharge Data Primary Care Provider: Jeanie Coyle Discharges patient from system. Discharge Date/Time: 03/24/20 15:31
[2020-03-24] MEDS: IBUPROFEN 600 MG TABLET PO (12:56)
[2020-03-24] MEDS: MEASLES,MUMPS,RUBELLA VACC/PF 0.5 ML VIAL SUBCUT (14:46)
[2020-03-24 15:04] VITALS: BP 121/60; PULSE 62; RESP 16; TEMP 36.3
[2020-03-24] MEDS: DOCUSATE 250 MG CAPSULE PO (15:25)
--- NOTE | 2020-03-24 15:49 | CM.SWNOTE ---
Addendum entered by TAMIKO Flynn 03/24/20 15:54: CPS Intake # [id number] Original Note: VALVE INSERTER Consult Note VALVE INSERTER consult received to assess after 24 yo mom Rowena has given , vaginally, to her baby girl yesterday. Spoke to Dr Serrano and NAZ Garrett today; no concerns since delivery about baby?s health or mom?s ability to gee or care for baby. Baby and mom doing well, baby is being bottle fed. This is mom Rowena?s second child, her first child had been taken into CPS custody as a baby. Mom has h/o meth and ecstasy use and was using on a daily basis, per notes, up until she found out she was , at approx. 5 months into . Mom has had 2-3 office visits for pre-jorden care; she has had a negative UA upon each visit, and an additional negative UA upon presenting to for induction of labor, d/t gestational HTN. Placed call to CPS this morning, gave referral and reviewed the background information provided by medical providers and RN. D/t mom?s hx w/CPS and recent drug use, CPS ?screened in? call and weatherization and housing inspector SWer dispatched today. This VALVE INSERTER suggested to RN and Dr Serrano that baby be placed on a medical hold until CPS could assess safety plan. Mom has been medically discharged today and is rooming in w/baby girl. FOB is not present. Maternal grandma is working today at [employer] and will visit after work. Met w/mom Rowena , introduced role as hospital SWer. According to our conversation: Rowena has been living w/her mom Reyna in [place] since learning of her . Libby Orellana works multimedia specialist as a cg at [employer] and Rowena is financially supported by her mom and support from [facility]. Rowena also lives w/her older brother, who she describes as autistic but independent and helpful around the house when clear direction is given. Mom Rowena is hopeful to take baby girl honesty home with her and asks this VALVE INSERTER many times throughout the conversation whether she will have baby honesty ?taken from me?. This VALVE INSERTER redirected Rowena many times to discuss her current efforts towards stability and sobriety and reinforced the cortez aspects that make her current scenario w/baby girl different than the one w/her son years ago. Mom is part of [employer] and knows how to access this service for baby girl. Rowena states she has food, fdc and clothing available for her and baby girl and finds assist w/transportation from either Medicaid transport, mom Reyna, or her best friend Lynn. 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 Rowena intends to remain sober by checking in with her support network daily, her older sister (currently out of state), her best friend Lynn (in [place] and her mom, who all help her stay focused on her goal of sobriety. This VALVE INSERTER suggested Rowena access counseling services through [facility], since she has been connected to the [place] clinic in the past, and Rowena was receptive to this. Rowena also shares that she has the information for either [facility] in [place] and/or [facility] in [place] to secure housing for she and baby girl if it is needed. This VALVE INSERTER suggested that she seemed to have stable housing and support at her mom?s (?) and Rowena agreed. Rowena admits it was very difficult to remain sober during her prior , and after the of her son, because she was around people who used, including her baby?s Dad. FOB of baby honesty is currently on a ?work release? from custodial in [place] and Rowena speaks w/him by phone. Rowena states she is no longer around people who are current drug users. Rowena denies needs or resource information from this VALVE INSERTER. Rowena is anxious about speaking w/ CPS but understands steps are needed to review and confirm the safety plan for baby. Rowena is appropriate w/baby girl while this VALVE INSERTER in room, responsive to her ?s cries/noises and loving in her response. Updated NAZ Garrett and then connected w/ Lexis from CPS P# [phone]. She is traveling from [place] and will be to at approx. 1700 to complete her assessment and offer guidance on next steps. TAMIKO Flynn
== END 2020-03-24 15:31 | disposition home or self-care (01) | DRG 560 ==
PROVIDERS: Admitting Provider Obstetrics & Gynecology; PCP Specialist; Referring Provider Obstetrics & Gynecology; Visit Provider Obstetrics & Gynecology
DX: O13.4 Gestational [pregnancy-induced] hypertension without significant proteinuria, complicating childbirth (principal); O99.824 Streptococcus B carrier state complicating childbirth; Z3A.39 39 weeks gestation of pregnancy; Z37.0 Single live birth; O70.0 First degree perineal laceration during delivery; Z36.2 Encounter for other antenatal screening follow-up
CPT/HCPCS: 01967; 36415; 59025; 59050; 59409; 76816; 80053; 80305; 82570; 84156; 84550; 85025; 85027; 86850; 86900; 86901; 87635; G0378; G0379; J2540; J2590